=== PATIENT | female | born 1960 | race American Indian/Alaskan Native ===

== ENCOUNTER 2017-08-16 10:30 | Inpatient (IN) ==
[2017-08-11 15:54] LABS: Appearance,Urine HAZY; Bacteria,Urine MANY /hpf (0); Bilirubin,Urine NEG (NEG); Color,Urine YELLOW; Glucose,Urine (UA) NEGATIVE (NEG); Leukocyte Esterase,Urine 250 /uL (NEG); Mucus,Urine FEW /hpf (0); Nitrate,Urine NEG (NEG); Protein,Urine NEG (NEG); Urine Blood NEG mg/dL (<0.03); Urine RBC 2 /hpf (0-1); Urine Squamous Epithelial Cell 1 /hpf (0-4); Urine Transitional Epi Cells 1 /hpf (0-2); Urine WBC 146 /hpf (0-4); Urobilinogen,Urine NEG (NEG)
[2017-08-11 17:30] LABS: Basophils # (Auto) 0 K/mcL (0.0-0.3); Basophils % (Auto) 0.7 % (0.0-2.0); Eosinophils # (Auto) 0.2 K/mcL (0.0-0.7); Eosinophils % (Auto) 2.7 % (0.0-7.0); Lymphocytes # (Auto) 1.5 K/mcL (1.5-4.8); Lymphocytes % (Auto) 22.1 % (15.5-49.0); Mean Cell Volume 89.1 fL (80.0-100.0); Mean Corpuscular Hemoglobin 29.4 pg (26.0-34.0); Monocytes # (Auto) 0.8 K/mcL (0.1-0.9); Monocytes % (Auto) 12.5 % (1.0-12.0); Platelet Count 195 K/mcL (140-440); RBC 4.78 M/mcL (4.00-5.20); Red Cell Distribution Width 16.5 % (11.5-14.5)
[2017-08-11 17:36] LABS: Blood Urea Nitrogen 32 mg/dl (6-20)
[~2017-08-16 10:30] MED LIST: ACETAMINOPHEN 500 MG TABLET PO SCH; CELECOXIB 200 MG CAPSULE PO SCH; PREGABALIN 100 MG CAPSULE PO SCH; ceFAZolin 1 GM VIAL IV SCH; oxyCODONE 10 MG TAB.ER.12H PO SCH
[2017-08-16 11:41] LABS: Appearance,Urine CLEAR; Bacteria,Urine 0 /hpf (0); Bilirubin,Urine NEG (NEG); Color,Urine YELLOW; Glucose,Urine (UA) NEGATIVE (NEG); Leukocyte Esterase,Urine 25 /uL (NEG); Mucus,Urine FEW /hpf (0); Nitrate,Urine NEG (NEG); Protein,Urine 30 mg/dL (NEG); Specific Gravity,Urine 1.025 (1.000-1.035); Urine Blood NEG mg/dL (<0.03); Urine Hyaline Cast 4 /lpf (0-2); Urine RBC 1 /hpf (0-1); Urine Squamous Epithelial Cell < 1 /hpf (0-4); Urine Transitional Epi Cells < 1 /hpf (0-2); Urine WBC 5 /hpf (0-4)
[2017-08-16] MEDS ORDERED: PROPOFOL 200 MG/20 ML VIAL IV ONE (14:00)
[2017-08-16] MEDS ORDERED: MIDAZOLAM 5 MG/5 ML VIAL IV ONE (14:00)
[2017-08-16] MEDS ORDERED: GLYCOPYRROLATE 0.2 MG/ML VIAL IV ONE (14:00)
[2017-08-16] MEDS ORDERED: ONDANSETRON 4 MG/2 ML VIAL IV ONE (14:00)
[2017-08-16] MEDS ORDERED: TRANEXAMIC ACID 1,000 MG/10 ML VIAL IV ONE ×3 (14:00→15:35)
[2017-08-16] MEDS ORDERED: KETAMINE 100 MG/ML ML IV ONE (14:00)
[2017-08-16] MEDS ORDERED: LIDOCAINE HCL/PF 100 MG/5 ML SYRINGE IV ONE (14:00)
[2017-08-16] MEDS ORDERED: GENTAMICIN SULFATE 800 MG/20 ML VIAL IR ONE (14:19)
[2017-08-16] MEDS ORDERED: KETOROLAC 30 MG, ROPIVACAINE HCL/PF 49.5 ML, EPINEPHrine 0.5 MG, 0.9 % SODIUM CHLORIDE ... IJ SCH (14:30)
[2017-08-16] MEDS ORDERED: ONDANSETRON 4 MG/2 ML VIAL IV PRN ×2 (15:06→15:10)
[2017-08-16] MEDS ORDERED: IPRATROPIUM/ALBUTEROL 3 ML AMPUL.NEB NEB PRN (15:06)
[2017-08-16] MEDS ORDERED: METHOCARBAMOL 1,000 MG/10 ML VIAL IV PRN (15:06)
[2017-08-16] MEDS ORDERED: MEPERIDINE 25 MG/ML SYRINGE IV PRN (15:06)
--- NOTE | 2017-08-16 15:09 | Brief Operative Note ---
Date of procedure: 08/16/17 Pre-op diagnosis: right hip avn Post-op diagnosis: same Procedure: right giovanna Grafts/Implants: Yes Anesthesia: GETA Complications: none Complications Description: 08/16/17 15:09 none Surgeon: Poncho Hunter Waxer Floor: Jamal Barajas Estimated blood loss (cc): 120 Specimens Removed/Pathology: none sent Condition: stable Disposition: PACU
[2017-08-16] MEDS ORDERED: POLYETHYLENE GLYCOL 3350 17 GM PACKET PO PRN (15:10)
[2017-08-16] MEDS ORDERED: MAGNESIUM HYDROXIDE 30 ML ORAL.SUSP PO PRN (15:10)
[2017-08-16] MEDS ORDERED: FLEETS ADULT ENEMA PR PRN (15:10)
[2017-08-16] MEDS ORDERED: HYDROmorphone 2 MG/ML SYRINGE IV PRN (15:10)
[2017-08-16] MEDS ORDERED: TEMAZEPAM 15 MG CAPSULE PO PRN (15:10)
[2017-08-16] MEDS ORDERED: BISACODYL 10 MG SUPP.RECT PR PRN (15:10)
[2017-08-16] MEDS ORDERED: ACETAMINOPHEN 325 MG TABLET PO PRN (15:10)
[2017-08-16] MEDS ORDERED: BENZOCAINE/MENTHOL 1 LOZENGE PO PRN (15:10)
[2017-08-16] MEDS ORDERED: BECLOMETHASONE DIPROPIONATE 40MCG INHALER INH PRN (15:14)
[2017-08-16] MEDS ORDERED: LACTATED RINGERS 1,000 ML IV SCH (15:15)
[2017-08-16] MEDS ORDERED: fentaNYL 100 MCG/2 ML VIAL IV ONE (15:35)
[2017-08-16] MEDS ORDERED: DIAZEPAM 10 MG/2 ML SYRINGE IV ONE (15:39)
[2017-08-16] MEDS ORDERED: fentaNYL 100 MCG/2 ML VIAL IV SCH (15:45)
--- NOTE | 2017-08-16 16:16 | XRay Report ---
CLINICAL INFORMATION: Postsurgical follow-up TECHNIQUE: AP pelvis. AP and lateral right hip COMPARISON: None. FINDINGS: Status post right total hip arthroplasty. Acetabular and femoral head complements are in anatomic positions. Gamma nail configuration in the left hip. There are cancellous screws and an intramedullary nail in place. No pelvic fracture. No lytic lesion. IMPRESSION: Status post right total hip arthroplasty Interpreted and Authenticated by: Jose Weinberg 08/16/17
[2017-08-16] MEDS: 0.45 % SODIUM CHLORIDE 1,000 ML IV SCH (19:04)
[2017-08-16] MEDS: clonazePAM 0.5 MG TABLET PO SCH (20:22)
[2017-08-16] MEDS: PREGABALIN 150 MG CAPSULE PO SCH (20:22)
[2017-08-16] MEDS: ASPIRIN 325 MG ENTERIC COATED TABLET PO SCH (20:22)
[2017-08-16] MEDS: DOCUSATE SODIUM 100 MG CAPSULE PO SCH (20:22)
[2017-08-16] MEDS: busPIRone 5 MG TABLET PO SCH (20:22)
[2017-08-16] MEDS: 0.9 % SODIUM CHLORIDE 10 ML SYRINGE IV SCH (20:23)
[2017-08-16] MEDS: SENNOSIDES 1 TABLET PO SCH (20:23)
[2017-08-16] MEDS: oxyCODONE 10 MG TAB.ER.12H PO SCH (20:23)
[2017-08-16] MEDS: SIMVASTATIN 10 MG TABLET PO SCH (20:23)
[2017-08-16] MEDS: ceFAZolin 1 GM VIAL IV SCH (22:36)
[2017-08-16] MEDS: HYDROcodone/APAP 10/325MG TABLET PO PRN (23:08)
[2017-08-17] MEDS: 0.45 % SODIUM CHLORIDE 1,000 ML IV SCH ×3 (02:19→13:18)
[2017-08-17] MEDS: HYDROcodone/APAP 10/325MG TABLET PO PRN ×5 (04:00→22:59)
[2017-08-17] MEDS: ceFAZolin 1 GM VIAL IV SCH (07:06)
[2017-08-17] MEDS: 0.9 % SODIUM CHLORIDE 10 ML SYRINGE IV SCH ×3 (07:08→21:15)
[2017-08-17] MEDS: OMEPRAZOLE 20 MG CAPSULE PO SCH (07:08)
--- NOTE | 2017-08-17 07:39 | Orthopedic Progress Note ---
Subjective Patient information: Note initiated : 08/17/17 at 7:38 am Service Date, if different from initiated Date: [] Patient: Shiela Alas 57 y/o F admitted on 08/16/17 for Rt Total Hip Arthroplasty Posterior. Chief Complaint: [Pt is stable this morning on post operative day 1 without any significant concerns or complaints. Patients vital signs have remained stable. Patients dressing is dry and exhibits a grossly intact neurovascular and neuromotor exam. Patients 10 point ROS is otherwise negative. ] Objective Vital signs: Vital Signs Temp Pulse Pulse Resp BP Pulse Ox 08/17/17 07:35 90 08/17/17 07:20 53 L 12 90 08/17/17 06:00 95 08/17/17 03:13 97.7 F 53 L 16 132/76 95 08/17/17 03:12 95 08/17/17 02:00 94 08/16/17 23:52 97.6 F 54 L 16 122/78 94 08/16/17 23:51 94 08/16/17 22:43 94 08/16/17 20:27 97 08/16/17 19:41 96.9 F L 52 L 16 154/90 97 08/16/17 18:58 51 L 130/82 96 08/16/17 17:58 52 L 125/78 94 08/16/17 17:38 51 L 127/76 95 08/16/17 17:10 92 08/16/17 17:08 113/70 91 08/16/17 16:53 119/74 92 08/16/17 16:38 117/74 92 08/16/17 16:23 116/71 92 08/16/17 16:07 97.6 F 62 18 150/73 94 08/16/17 15:53 66 18 141/71 96 08/16/17 15:48 60 16 132/80 93 08/16/17 15:43 61 18 128/75 96 08/16/17 15:38 86 19 144/95 94 08/16/17 15:33 89 19 150/88 94 08/16/17 15:28 89 18 181/110 93 08/16/17 15:23 97.6 F 76 18 150/88 96 08/16/17 11:02 98 F 20 133/83 94 Intake and Output 08/16/17 08/17/17 08/17/17 21:59 05:59 13:59 Intake Total 2099 / 2099 1148 / 1148 Output Total 400 / 400 525 / 525 225 / 225 Balance 1700 / 1700 623 / 623 -225 / -225 Intake: IV 2099 998 / 998 Sodium Chloride 0.45% 1,000 ml 998 / 998 @ 100 mls/hr IV .Q10H [place] Rx#: [id number] Oral 150 / 150 Output: Void Amount 250 / 250 525 / 525 225 / 225 Estimated Blood Loss 150 / 150 Other: Weight 220 lb 8 oz Intake & Output: Intake & Output 08/16/17 08/17/17 08/17/17 21:59 05:59 13:59 Intake Total 2099 / 2099 1148 / 1148 Output Total 400 / 400 525 / 525 225 / 225 Balance 1700 / 1700 623 / 623 -225 / -225 Weight 220 lb 8 oz Intake: IV 2099 998 / 998 Sodium Chloride 0.45% 1,000 ml 998 / 998 @ 100 mls/hr IV .Q10H [place] Rx#: [id number] Oral 150 / 150 Output: Void Amount 250 / 250 525 / 525 225 / 225 Estimated Blood Loss 150 / 150 Incision: Yes healing Incision clean and dry: Yes Dressing: Yes clean, Yes dry Weight bearing status: full Neurological exam IM: Yes motor sensory intact, Yes neurovascular intact Extremities exam IM: Yes Foot pink and warm, Yes neurovascular intact - Labs CBC & BMP: 08/17/17 04:00 08/11/17 14:35 Labs: Orthopedic Labs 08/16/17 08/11/17 10:50 14:35 PT 13.2 21.8 H INR 1.0 1.8 H APTT 39 H 08/17/17 08/11/17 04:00 14:35 Hgb 14.0 Hct 34.7 L 42.5 Assessment and Plan (1) Hx of total hip arthroplasty The patient has been educated regarding dressing care, Physical Therapy recommendations, home exercises, restrictions, and follow up appointments. The patient has had all necessary DME prescribed. The patient has remained stable during their hospital course. The patient was discharge with a stable exam. Leave Dermabond patch intact until followup Status: Acute
--- NOTE | 2017-08-17 07:43 | Discharge Summary ---
Ortho Discharge - [facility] - Patient Instructions Diet: Regular Diet Activity: activity as tolerated, ambulate with assistive device, weight bearing as tolerated Total Hip Protocol: Follow activity instructions as provided by Physical Therapy. Dressing Care: May shower in 2 days Patient Education: Total Hip Replacement (DC) - Problem Maintenance (1) Hx of total hip arthroplasty Status: Acute - Follow Up Plan Follow Up Appointments: Poncho Hunter MD [Physician] - 08/31/17 10:40 am Disposition: Home, Self-Care Prognosis: Good Rehab Potential: Good I certify that the patient requires SNF services: No Overall status at discharge: patient is progressing back to baseline - Orders For Discharge Prescriptions: Docusate Sodium [Colace] 100 mg PO BID #60 cap HYDROcodone/APAP 10/325MG [[place] 10/325Mg] 1 - 2 tab PO Q4HP PRN #75 tab PRN Reason: Pain Level 3-6 oxyCODONE [Oxycontin] 10 mg PO Q12 #20 tab.er.12h
--- NOTE | 2017-08-17 09:23 | Operative Note ---
DATE OF OPERATION: 08/16/2017 PREOPERATIVE DIAGNOSIS: ___right hip djd POSTOPERATIVE DIAGNOSIS: ___right hip djd PROCEDURE: right tha__ SURGEON: Poncho Hunter M.D. DESCRIPTION OF PROCEDURE: The patient was brought to the operating room and put to sleep with general LMA anesthesia with a time out performed confirming the right hip to be the arthritic hip with avascular necrosis. After this timeout, preop antibiotics had been given, tranexamic acid given. We turned the patient in the left lateral position and a superior posterior approach performed. We went through the fascial layer, identified the superior posterior capsule which was released with the piriformis obturator internus, and this was tagged with a #1 Ethibond stitch. Once done, we then dislocated the hip and made our neck cut at 32 mm in length. Once done, we then reamed up the acetabulum to the size of 49, implanted a 50 cup with no screw holes with excellent fixation. Once in place, we then placed a 36 mm regular liner with highly cross-linked poly. The femur was then broached up to a size 4. Took x-rays with the size 4 stem which showed equal leg lengths. We then placed a cementless stem with a neutral neck length, 36 mm ceramic neck length without complications. This fit very nicely and was stable up to 80 degrees internal rotation. There was no complication. We repaired the posterior capsule with #1 Ethibond, closed the fascial layer with #1 Stratafix and then placed irrigation. The soft tissues were injected around the hip for pain control. Once this was done, I then closed the skin with 2-0 Vicryl and adhesive closure. The patient tolerated this well. There was no complication. RBH:benjy Job ID: [id number] Doc ID: [id number] Poncho AGRAWAL
[2017-08-17] MEDS: PREGABALIN 150 MG CAPSULE PO SCH ×2 (09:27→21:16)
[2017-08-17] MEDS: buPROPion 150 MG TAB.XL.24H PO SCH (09:28)
[2017-08-17] MEDS: LOSARTAN 50 MG TABLET PO SCH (09:28)
[2017-08-17] MEDS: ASPIRIN 325 MG ENTERIC COATED TABLET PO SCH ×2 (09:30→21:16)
[2017-08-17] MEDS: AMIODARONE HCL 200 MG TABLET PO SCH (09:30)
[2017-08-17] MEDS: BUMETANIDE 1 MG TABLET PO SCH (09:30)
[2017-08-17] MEDS: METOPROLOL SUCCINATE 50 MG TAB.XL.24H PO SCH (09:30)
[2017-08-17] MEDS: DOCUSATE SODIUM 100 MG CAPSULE PO SCH ×2 (09:30→21:16)
[2017-08-17] MEDS: CALCITRIOL 0.25 MCG CAPSULE PO SCH (09:30)
[2017-08-17] MEDS: clonazePAM 0.5 MG TABLET PO SCH ×3 (09:31→21:16)
[2017-08-17] MEDS: busPIRone 5 MG TABLET PO SCH ×2 (09:31→21:16)
[2017-08-17] MEDS: VENLAFAXINE 75 MG CAP.XL.24H PO SCH (09:31)
[2017-08-17] MEDS: oxyCODONE 10 MG TAB.ER.12H PO SCH ×2 (09:34→21:16)
[2017-08-17] MEDS: LEFLUNOMIDE 20 MG TABLET PO SCH (09:35)
[2017-08-17] MEDS: TIOTROPIUM BROMIDE 18 MCG INHALANT INH SCH (09:35)
[2017-08-17] MEDS ORDERED: FLU VACC QS2017-18 36MOS UP/PF 60 MCG/0.5 ML SYRINGE IM ONE (10:00)
[2017-08-17] MEDS: SENNOSIDES 1 TABLET PO SCH (21:15)
[2017-08-17] MEDS: SIMVASTATIN 10 MG TABLET PO SCH (21:15)
[2017-08-18] MEDS: HYDROcodone/APAP 10/325MG TABLET PO PRN ×4 (02:58→17:39)
[2017-08-18] MEDS: 0.9 % SODIUM CHLORIDE 10 ML SYRINGE IV SCH ×3 (04:31→20:52)
[2017-08-18] MEDS: OMEPRAZOLE 20 MG CAPSULE PO SCH (07:02)
[2017-08-18] MEDS: LOSARTAN 50 MG TABLET PO SCH (08:43)
[2017-08-18] MEDS: VENLAFAXINE 75 MG CAP.XL.24H PO SCH (08:43)
[2017-08-18] MEDS: PREGABALIN 150 MG CAPSULE PO SCH ×2 (08:43→20:51)
[2017-08-18] MEDS: BUMETANIDE 1 MG TABLET PO SCH (08:43)
[2017-08-18] MEDS: buPROPion 150 MG TAB.XL.24H PO SCH (08:43)
[2017-08-18] MEDS: AMIODARONE HCL 200 MG TABLET PO SCH (08:43)
[2017-08-18] MEDS: TIOTROPIUM BROMIDE 18 MCG INHALANT INH SCH (08:44)
[2017-08-18] MEDS: ASPIRIN 325 MG ENTERIC COATED TABLET PO SCH ×2 (08:44→20:51)
[2017-08-18] MEDS: DOCUSATE SODIUM 100 MG CAPSULE PO SCH ×2 (08:44→20:51)
[2017-08-18] MEDS: busPIRone 5 MG TABLET PO SCH ×2 (08:44→20:51)
[2017-08-18] MEDS: METOPROLOL SUCCINATE 50 MG TAB.XL.24H PO SCH (08:44)
[2017-08-18] MEDS: LEFLUNOMIDE 20 MG TABLET PO SCH (08:44)
[2017-08-18] MEDS: clonazePAM 0.5 MG TABLET PO SCH ×3 (08:45→20:51)
[2017-08-18] MEDS ORDERED: WARFARIN 2.5 MG TABLET PO SCH (14:00)
--- NOTE | 2017-08-18 18:39 | Orthopedic Progress Note ---
Subjective Patient information: Note initiated : 08/18/17 at 6:37 pm Service Date, if different from initiated Date: [] Patient: Shiela Alas 57 y/o F admitted on 08/16/17 for Rt Total Hip Arthroplasty Posterior. Chief Complaint: [pain and is improving] Objective Vital signs: Vital Signs Temp Pulse Pulse Resp BP BP Pulse Ox 08/18/17 18:00 93 08/18/17 16:00 99.0 F H 55 L 20 142/76 93 08/18/17 14:00 95 08/18/17 12:00 98.9 F 54 L 16 120/58 93 08/18/17 10:00 94 08/18/17 08:00 98.0 F 62 18 112/68 93 08/18/17 07:19 55 L 16 93 08/18/17 07:11 93 08/18/17 06:00 95 08/18/17 03:23 99.8 F H 59 L 14 138/76 92 08/18/17 00:00 98.0 F 58 L 14 148/78 96 08/17/17 21:00 95 08/17/17 19:48 99.2 F H 61 14 150/82 97 08/17/17 19:00 96 Intake and Output 08/18/17 08/18/17 08/18/17 05:59 13:59 21:59 Intake Total 500 / 500 480 / 480 240 / 240 Output Total 675 / 675 550 / 550 1000 / 1000 Balance -175 / -175 -70 / -70 -760 / -760 Intake: Oral 500 / 500 480 / 480 240 / 240 Output: Void Amount 675 / 675 550 / 550 1000 / 1000 Other: Meal Lunch Dinner Percent of Meal Consumed 50% 50% Feeding Ability Independent Independent # Voids 1 1 Intake & Output: Intake & Output 08/18/17 08/18/17 08/18/17 05:59 13:59 21:59 Intake Total 500 / 500 480 / 480 240 / 240 Output Total 675 / 675 550 / 550 1000 / 1000 Balance -175 / -175 -70 / -70 -760 / -760 Intake: Oral 500 / 500 480 / 480 240 / 240 Output: Void Amount 675 / 675 550 / 550 1000 / 1000 Other: Meal Lunch Dinner Percent of Meal Consumed 50% 50% Feeding Ability Independent Independent # Voids 1 1 Incision: Yes healing Incision clean and dry: Yes Dressing: Yes clean Weight bearing status: full Neurological exam IM: Yes oriented X3, Yes neurovascular intact Extremities exam IM: Yes Foot pink and warm (dc home in am), Yes neurovascular intact - Labs CBC & BMP: 08/17/17 04:00 08/11/17 14:35 Labs: Orthopedic Labs 08/16/17 08/11/17 10:50 14:35 PT 13.2 21.8 H INR 1.0 1.8 H APTT 39 H 08/17/17 08/11/17 04:00 14:35 Hgb 14.0 Hct 34.7 L 42.5
[2017-08-18] MEDS: SENNOSIDES 1 TABLET PO SCH (20:51)
[2017-08-18] MEDS: SIMVASTATIN 10 MG TABLET PO SCH (20:51)
[2017-08-19] MEDS: HYDROcodone/APAP 10/325MG TABLET PO PRN ×3 (03:06→12:34)
[2017-08-19] MEDS: 0.9 % SODIUM CHLORIDE 10 ML SYRINGE IV SCH (05:27)
[2017-08-19] MEDS: OMEPRAZOLE 20 MG CAPSULE PO SCH (07:12)
--- NOTE | 2017-08-19 08:04 | Orthopedic Progress Note ---
Subjective Patient information: Note initiated : 08/19/17 at 8:03 am Service Date, if different from initiated Date: [] Patient: Shiela Alas 57 y/o F admitted on 08/16/17 for Rt Total Hip Arthroplasty Posterior. Chief Complaint: [feeling better and less pain] Objective Vital signs: Vital Signs Temp Pulse Pulse Resp BP BP Pulse Ox 08/19/17 07:45 98.6 F 16 150/72 93 08/19/17 07:29 57 L 12 92 08/19/17 03:13 99.8 F H 58 L 16 148/68 94 08/19/17 02:00 94 08/19/17 00:00 97.6 F 53 L 16 130/62 94 08/18/17 20:00 98.9 F 54 L 16 126/60 95 08/18/17 18:00 93 08/18/17 16:00 99.0 F H 55 L 20 142/76 93 08/18/17 14:00 95 08/18/17 12:00 98.9 F 54 L 16 120/58 93 08/18/17 10:00 94 Intake and Output 08/18/17 08/19/17 08/19/17 21:59 05:59 13:59 Intake Total 240 / 240 500 / 500 Output Total 1675 / 1675 650 / 650 200 / 200 Balance -1435 / -1435 -150 / -150 -200 / -200 Intake: Oral 240 / 240 500 / 500 Output: Void Amount 1675 / 1675 650 / 650 200 / 200 Other: Meal Dinner Percent of Meal Consumed 50% Feeding Ability Independent Weight 219 lb Intake & Output: Intake & Output 08/18/17 08/19/17 08/19/17 21:59 05:59 13:59 Intake Total 240 / 240 500 / 500 Output Total 1675 / 1675 650 / 650 200 / 200 Balance -1435 / -1435 -150 / -150 -200 / -200 Weight 219 lb Intake: Oral 240 / 240 500 / 500 Output: Void Amount 1675 / 1675 650 / 650 200 / 200 Other: Meal Dinner Percent of Meal Consumed 50% Feeding Ability Independent Incision: Yes healing Incision clean and dry: Yes Dressing: Yes clean Weight bearing status: full Neurological exam IM: Yes oriented X3, Yes neurovascular intact Extremities exam IM: Yes Foot pink and warm (dc hoome), Yes neurovascular intact - Labs CBC & BMP: 08/17/17 04:00 08/11/17 14:35 Labs: Orthopedic Labs 08/19/17 08/16/17 08/11/17 04:30 10:50 14:35 PT 14.2 13.2 21.8 H INR 1.1 1.0 1.8 H APTT 39 H 08/17/17 08/11/17 04:00 14:35 Hgb 14.0 Hct 34.7 L 42.5
[2017-08-19] MEDS: AMIODARONE HCL 200 MG TABLET PO SCH (08:50)
[2017-08-19] MEDS: buPROPion 150 MG TAB.XL.24H PO SCH (08:50)
[2017-08-19] MEDS: DOCUSATE SODIUM 100 MG CAPSULE PO SCH (08:50)
[2017-08-19] MEDS: CALCITRIOL 0.25 MCG CAPSULE PO SCH (08:50)
[2017-08-19] MEDS: METOPROLOL SUCCINATE 50 MG TAB.XL.24H PO SCH (08:50)
[2017-08-19] MEDS: BUMETANIDE 1 MG TABLET PO SCH (08:50)
[2017-08-19] MEDS: PREGABALIN 150 MG CAPSULE PO SCH (08:51)
[2017-08-19] MEDS: clonazePAM 0.5 MG TABLET PO SCH (08:51)
[2017-08-19] MEDS: LOSARTAN 50 MG TABLET PO SCH (08:51)
[2017-08-19] MEDS: VENLAFAXINE 75 MG CAP.XL.24H PO SCH (08:51)
[2017-08-19] MEDS: busPIRone 5 MG TABLET PO SCH (08:51)
[2017-08-19] MEDS: LEFLUNOMIDE 20 MG TABLET PO SCH (08:52)
[2017-08-19] MEDS: TIOTROPIUM BROMIDE 18 MCG INHALANT INH SCH (08:52)
[2017-08-19] MEDS ORDERED: WARFARIN 2 MG TABLET PO SCH (14:00)
[2017-08-22] MEDS ORDERED: WARFARIN 1 MG TABLET PO SCH (14:00)
[2017-08-30] MEDS ORDERED: ERGOCALCIFEROL 1.25 MG PO SCH (09:00)
== END 2017-08-19 13:15 | disposition home or self-care (01) | DRG 470 ==
LOC: MEDSUR 10:30
PROVIDERS: ADMIT Orthopaedic Surgery; ATTEND Orthopaedic Surgery

== ENCOUNTER 2017-11-22 12:21 | Inpatient (IN) ==
[~2017-11-22 12:21] MED LIST changes: +0.9 % SODIUM CHLORIDE 250 ML IV SCH; -PREGABALIN 100 MG CAPSULE PO SCH; +PREGABALIN 150 MG CAPSULE PO SCH; -ceFAZolin 1 GM VIAL IV SCH
[2017-11-22] MEDS ORDERED: KETOROLAC 30 MG, ROPIVACAINE HCL/PF 49.5 ML, EPINEPHrine 0.5 MG, 0.9 % SODIUM CHLORIDE ... IJ ONE (13:00)
[2017-11-22] MEDS ORDERED: VANCOMYCIN 1,000 MG in 0.9 % SODIUM CHLORIDE 250 ML IV SCH (14:00)
[2017-11-22 14:36] LABS: Appearance,Urine HAZY; Bacteria,Urine 0 /hpf (0); Bilirubin,Urine NEG (NEG); Color,Urine YELLOW; Glucose,Urine (UA) NEGATIVE (NEG); Leukocyte Esterase,Urine 25 /uL (NEG); Mucus,Urine MOD /hpf (0); Protein,Urine 30 mg/dL (NEG); Specific Gravity,Urine 1.014 (1.000-1.035); Urine Blood NEG mg/dL (<0.03); Urine Hyaline Cast 6 /lpf (0-2); Urine RBC 1 /hpf (0-1); Urine Squamous Epithelial Cell 5 /hpf (0-4); Urine Transitional Epi Cells 1 /hpf (0-2); Urine WBC 4 /hpf (0-4); Urobilinogen,Urine NEG (NEG)
[2017-11-22] MEDS ORDERED: IPRATROPIUM/ALBUTEROL 3 ML AMPUL.NEB NEB ONE (16:20)
[2017-11-22] MEDS ORDERED: PROPOFOL 200 MG/20 ML VIAL IV ONE (16:50)
[2017-11-22] MEDS ORDERED: SUCCINYLCHOLINE 20 MG/ML ML IV ONE (16:50)
[2017-11-22] MEDS ORDERED: diphenhydrAMINE 50 MG/ML VIAL ONE (16:50)
[2017-11-22] MEDS ORDERED: ESMOLOL 100 MG/10 ML VIAL IV ONE (16:50)
[2017-11-22] MEDS ORDERED: ePHEDrine 50 MG/ML AMPUL IV ONE (16:50)
[2017-11-22] MEDS ORDERED: DEXAMETHASONE 10 MG/ML VIAL ONE (16:50)
[2017-11-22] MEDS ORDERED: EPINEPHrine 1 MG/10 ML (1:10,000) SYRINGE IV ONE (16:50)
[2017-11-22] MEDS ORDERED: MIDAZOLAM 5 MG/5 ML VIAL ONE (16:50)
[2017-11-22] MEDS ORDERED: LIDOCAINE HCL/PF 100 MG/5 ML SYRINGE IV ONE (16:50)
[2017-11-22] MEDS ORDERED: KETAMINE 10 MG/ML ML ONE (16:50)
[2017-11-22] MEDS ORDERED: GENTAMICIN SULFATE 800 MG/20 ML VIAL IR ONE (17:36)
[2017-11-22] MEDS ORDERED: fentaNYL 100 MCG/2 ML VIAL IV PRN (17:38)
[2017-11-22] MEDS ORDERED: METHOCARBAMOL 1,000 MG/10 ML VIAL IV PRN (17:38)
[2017-11-22] MEDS ORDERED: ONDANSETRON 4 MG/2 ML VIAL IV PRN ×2 (17:38→17:57)
[2017-11-22] MEDS ORDERED: MEPERIDINE 25 MG/ML SYRINGE IV PRN (17:38)
[2017-11-22] MEDS ORDERED: IPRATROPIUM/ALBUTEROL 3 ML AMPUL.NEB NEB PRN (17:38)
[2017-11-22] MEDS ORDERED: LACTATED RINGERS 1,000 ML IV SCH (17:45)
[2017-11-22] MEDS ORDERED: POLYETHYLENE GLYCOL 3350 17 GM PACKET PO PRN (17:57)
[2017-11-22] MEDS ORDERED: ACETAMINOPHEN 325 MG TABLET PO PRN (17:57)
[2017-11-22] MEDS ORDERED: MAGNESIUM HYDROXIDE 30 ML ORAL.SUSP PO PRN (17:57)
[2017-11-22] MEDS ORDERED: FLEETS ADULT ENEMA PR PRN (17:57)
[2017-11-22] MEDS ORDERED: KETOROLAC 30 MG/ML VIAL IV PRN (17:57)
[2017-11-22] MEDS ORDERED: TEMAZEPAM 15 MG CAPSULE PO PRN (17:57)
[2017-11-22] MEDS ORDERED: BENZOCAINE/MENTHOL 1 LOZENGE PO PRN (17:57)
[2017-11-22] MEDS ORDERED: TRANEXAMIC ACID 1,000 MG/10 ML VIAL IV ONE ×2 (17:57→19:07)
[2017-11-22] MEDS ORDERED: BISACODYL 10 MG SUPP.RECT PR PRN (17:57)
[2017-11-22] MEDS ORDERED: HYDROmorphone 2 MG/ML VIAL IV PRN (17:57)
--- NOTE | 2017-11-22 17:57 | Brief Operative Note ---
Date of procedure: 11/22/17 Pre-op diagnosis: Right hip revision femoral head Post-op diagnosis: same Procedure: right hip revision of the femoral head Grafts/Implants: Yes Anesthesia: CARRIEA Surgeon: Poncho Hunter Teacher Preschool: Jamal Barajas Estimated blood loss (cc): 0 Specimens Removed/Pathology: none sent Condition: stable Disposition: PACU
[2017-11-22] MEDS: 0.45 % SODIUM CHLORIDE 1,000 ML IV SCH (19:00)
--- NOTE | 2017-11-22 19:07 | XRay Report ---
CLINICAL INFORMATION: Postop total hip prostheses COMPARISON: None. FINDINGS: Right total hip revision shows near-anatomic alignment. Soft tissues swelling seen as expected. Old left hip fracture unchanged IMPRESSION: Negative Interpreted and Authenticated by: Jose Xiao 11/22/17
[2017-11-22] MEDS ORDERED: ROSUVASTATIN 10 MG TABLET PO SCH (21:00)
[2017-11-22] MEDS ORDERED: SENNOSIDES 1 TABLET PO SCH (21:00)
[2017-11-22] MEDS ORDERED: ATORVASTATIN 20 MG TABLET PO SCH (21:00)
[2017-11-22] MEDS: oxyCODONE/APAP 5/325MG TABLET PO PRN (21:23)
[2017-11-22] MEDS: ceFAZolin 1 GM VIAL IV SCH (21:28)
[2017-11-22] MEDS: DOCUSATE SODIUM 100 MG CAPSULE PO SCH (21:29)
[2017-11-22] MEDS: 0.9 % SODIUM CHLORIDE 10 ML SYRINGE IV SCH (22:36)
[2017-11-23] MEDS: oxyCODONE/APAP 5/325MG TABLET PO PRN ×4 (02:03→13:26)
[2017-11-23] MEDS: 0.45 % SODIUM CHLORIDE 1,000 ML IV SCH ×2 (03:27→14:43)
[2017-11-23] MEDS: 0.9 % SODIUM CHLORIDE 10 ML SYRINGE IV SCH ×2 (05:05→14:43)
[2017-11-23] MEDS: ceFAZolin 1 GM VIAL IV SCH (05:06)
--- NOTE | 2017-11-23 07:19 | Operative Note ---
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 PROCEDURE: Revision of the femoral head and release of the capsule. IMPLANTS: Revised from a neutral 36 mm head to a +7.5 mm head with removal of the anterior capsule and repair of the posterior capsule. SURGEON: Poncho Hunter MD NUCLEAR EQUIPMENT RESEARCH ENGINEER: Jamal Barajas PA-C BLOOD LOSS: About 50 mL COMPLICATIONS: None. DESCRIPTION OF PROCEDURE: The patient was brought to the operating room and put to sleep with general LMA anesthesia. Once this was done, we then performed an incision through her prior scar. Knowing vancomycin had been given, tranexamic acid given, we exposed the superior posterior approach. The [place] retractor was then placed. I then dislocated the hip at about 30 to 40 degrees of internal rotation. At this point, I released much of the tissue in the anterior capsule where it had been impinging. The cup and stem were well positioned. I then trialed the size 5, which gained up to about 60 degrees, went with a 7.5 that went up to 70 to 80 degrees with no subluxation, even with abduction to neutral. We irrigated thoroughly and then removed any further tissue anteriorly, repaired the posterior capsule with #2 Ethibond stitch. I irrigated thoroughly. Once this was done and the patient stable, we closed the fascial layer after thorough irrigation with #1 Stratafix, closed the skin with Stratafix and 2-0 Vicryl and rah. The patient tolerated this well without complication. RBH:myles Job ID: [id number] Doc ID: [id number] Poncho Hunter MD
--- NOTE | 2017-11-23 07:50 | Orthopedic Progress Note ---
Subjective Patient information: Note initiated : 11/23/17 at 7:48 am Service Date, if different from initiated Date: [] Patient: Shiela Alas 57 y/o F admitted on 11/22/17 for Right Total Hip Revision - Femoral Head Lengthenin. Chief Complaint: [Pt is stable this morning on post operative day 1 without any significant concerns or complaints. Patients vital signs have remained stable. Patients dressing is dry and is grossly instact from a neurovascular and motor standpoint. Patients 10 point ROS is otherwise negative. ] Objective Vital signs: Vital Signs Temp Pulse Resp BP Pulse Ox 11/23/17 07:24 96.4 F L 65 12 119/75 95 11/23/17 06:09 93 11/23/17 04:44 94 11/23/17 04:00 97.6 F 69 12 144/78 94 11/23/17 01:00 91 11/23/17 00:00 98.0 F 68 12 120/69 95 11/22/17 23:00 95 11/22/17 22:20 92 11/22/17 21:36 72 146/86 90 11/22/17 21:35 97.2 F 68 12 128/64 95 11/22/17 20:06 68 151/78 88 L 11/22/17 19:57 88 L 11/22/17 19:35 65 137/76 96 11/22/17 19:20 69 119/69 93 11/22/17 19:05 69 114/70 95 11/22/17 18:51 67 121/69 89 L 11/22/17 18:36 96.5 F L 69 12 124/66 93 11/22/17 18:22 97.6 F 67 16 133/70 94 11/22/17 18:07 97.3 F 68 17 124/60 96 11/22/17 18:02 70 18 136/72 84 L 11/22/17 17:57 80 16 141/69 94 11/22/17 17:52 98.1 F 79 18 124/69 94 Intake and Output 11/22/17 11/23/17 11/23/17 21:59 05:59 13:59 Intake Total 100 / 100 350 / 350 1000 / 1000 Output Total 200 / 200 425 / 425 Balance -100 / -100 -75 / -75 1000 / 1000 Intake: IV 1000 / 1000 Sodium Chloride 0.45% 1,000 ml 1000 / 1000 @ 100 mls/hr IV .Q10H [place] Rx#: [id number] Oral 350 / 350 IV - Manual Only 100 / 100 Output: Void Amount 425 / 425 Estimated Blood Loss 200 / 200 Other: Weight 210 lb Intake & Output: Intake & Output 11/22/17 11/23/17 11/23/17 21:59 05:59 13:59 Intake Total 100 / 100 350 / 350 1000 / 1000 Output Total 200 / 200 425 / 425 Balance -100 / -100 -75 / -75 1000 / 1000 Weight 210 lb Intake: IV 1000 / 1000 Sodium Chloride 0.45% 1,000 ml 1000 / 1000 @ 100 mls/hr IV .Q10H [place] Rx#: [id number] Oral 350 / 350 IV - Manual Only 100 / 100 Output: Void Amount 425 / 425 Estimated Blood Loss 200 / 200 Incision: Yes healing Incision clean and dry: Yes Dressing: Yes clean Weight bearing status: full Neurological exam IM: Yes motor sensory intact, Yes neurovascular intact Extremities exam IM: Yes Foot pink and warm, Yes neurovascular intact - Labs CBC & BMP: 11/23/17 04:18 Labs: Orthopedic Labs 11/22/17 16:24 PT 15.3 H INR 1.2 H 11/23/17 04:18 Hct 34.8 L Assessment and Plan (1) Hx of total hip arthroplasty The patient has been educated regarding dressing care, Physical Therapy recommendations, home exercises, restrictions, and follow up appointments. The patient has had all necessary DME prescribed. The patient has remained stable during their hospital course. The patient was discharge with a stable exam. Status: Acute
--- NOTE | 2017-11-23 07:52 | Discharge Summary ---
Ortho Discharge - [facility] - Patient Instructions Diet: Regular Diet Activity: activity as tolerated, weight bearing as tolerated Total Hip Protocol: Follow activity instructions as provided by Physical Therapy. Dressing Care: May shower in 3 days, Aquacel Ag - leave on for 5 days - Problem Maintenance (1) Hx of total hip arthroplasty Status: Acute - Follow Up Plan Follow Up Appointments: Poncho Hunter MD [Physician] - 12/07/17 3:50 pm Disposition: Xfer SNF Prognosis: Good Rehab Potential: Good I certify that the patient requires SNF services: Yes Overall status at discharge: patient is progressing back to baseline - Orders For Discharge Prescriptions: Docusate Sodium [Colace] 100 mg PO BID #60 cap oxyCODONE/APAP [Percocet 5-325 mg] 1 - 2 tab PO Q4HP PRN #75 tab PRN Reason: Pain Level 3-6
[2017-11-23] MEDS ORDERED: buPROPion 150 MG TAB.XL.24H PO SCH (09:00)
[2017-11-23] MEDS: DOCUSATE SODIUM 100 MG CAPSULE PO SCH (09:00)
[2017-11-23] MEDS ORDERED: BUMETANIDE 1 MG TABLET PO SCH (09:00)
== END 2017-11-23 16:20 | DRG 468 ==
LOC: MEDSUR 12:21
PROVIDERS: ADMIT Orthopaedic Surgery; ATTEND Orthopaedic Surgery

== ENCOUNTER 2018-07-22 16:44 | Inpatient (IN) ==
[2018-07-22] MEDS: LACTATED RINGERS 1,000 ML IV SCH ×3 (17:08→22:25)
--- NOTE | 2018-07-22 17:29 | XRay Report ---
CLINICAL INFORMATION: SOB COMPARISON: 10/30/2017 FINDINGS: Borderline cardiomegaly is unchanged. Mediastinum and pulmonary vessels are normal. Lungs are elevated suggesting chronic bronchitis. Scattered calcified granulomas seen in both perihilar regions - as before. No infiltrates only minor atelectasis in left base IMPRESSION: Borderline cardiomegaly and mild chronic bronchitis changes - stable Interpreted and Authenticated by: Jose Xiao 07/22/18
[2018-07-22 18:08] LABS: ALT/SGPT 13 U/l (0-40); Albumin/Globulin Ratio 1.2 (1.0-2.3); Alkaline Phosphatase 87 U/L (39-117); Blood Urea Nitrogen 27 mg/dl (6-20)
[2018-07-22 18:09] LABS: Basophils # (Auto) 0.3 K/mcL (0.0-0.3); Basophils % (Auto) 1.1 % (0.0-2.0); Eosinophils # (Auto) 0 K/mcL (0.0-0.7); Eosinophils % (Auto) 0 % (0.0-7.0); Granulocytes % (Auto) 91.9 % (38.0-78.0); Lymphocytes # (Auto) 0.6 K/mcL (1.5-4.8); Lymphocytes % (Auto) 2.4 % (15.5-49.0); Mean Cell Volume 86.5 fL (80.0-100.0); Mean Corpuscular HGB Conc 33.4 g/dL (31.0-36.0); Mean Corpuscular Hemoglobin 28.9 pg (26.0-34.0); Monocytes # (Auto) 1.1 K/mcL (0.1-0.9); Monocytes % (Auto) 4.6 % (1.0-12.0); Platelet Count 207 K/mcL (140-440); RBC 4.88 M/mcL (4.00-5.20); Red Cell Distribution Width 15.4 % (11.5-14.5)
[2018-07-22] MEDS ORDERED: LEVOFLOXACIN 750 MG/150 ML BAG IV ONE (18:23)
[2018-07-22] MEDS ORDERED: cefTRIAXone 1 GM VIAL IV ONE (18:26)
[2018-07-22 18:53] LABS: Appearance,Urine CLEAR; Bacteria,Urine FEW /hpf (0); Bilirubin,Urine NEG (NEG); Color,Urine STRAW; Glucose,Urine (UA) NEGATIVE (NEG); Leukocyte Esterase,Urine 25 /uL (NEG); Mucus,Urine FEW /hpf (0); Protein,Urine NEG (NEG); Urine Blood 0.03 mg/dL (<0.03); Urine Hyaline Cast 1 /lpf (0-2); Urine RBC 1 /hpf (0-1); Urine Squamous Epithelial Cell 1 /hpf (0-4); Urine Transitional Epi Cells < 1 /hpf (0-2); Urine WBC 5 /hpf (0-4); Urobilinogen,Urine NEG (NEG)
--- NOTE | 2018-07-22 19:03 | Emergency Department Note ---
General Adult HPI - General Chief complaint: Cold/Flu Symptoms Stated complaint: Cold symptoms Time Seen by Provider: 07/22/18 16:49 Source: patient, family Mode of arrival: wheelchair Limitations: no limitations - History of Present Illness HPI Narrative: 58-year-old female in ED with caregiver present. Caregiver states she saw patient on Wednesday and patient did not have lower left limb inflammation. Caregiver also states patient has altered mental status compared to her normal, fever, increased shortness of breath. Patient states she hasn't been feeling well for 2 days. She is normally on nasal cannula 2.5 L at home. Patient has are, CHF, diabetes type 2 with insulin, chronic renal disease (single kidney), and multiple other diagnoses. Onset (ago): day(s) (2) Associated symptoms: Reports: cough, fever/chills, headaches, loss of appetite, malaise, shortness of breath, weakness Treatments Prior to Arrival: none - Related Data Home Medications Medication Instructions Recorded Confirmed Bumetanide 2 mg PO QDAY 03/07/15 07/22/18 Pregabalin [Lyrica] 300 mg PO BID 03/07/15 07/22/18 Rosuvastatin [Crestor] 10 mg PO HS 03/07/15 07/22/18 Venlafaxine HCl [Venlafaxine HCl 225 mg PO QDAY 03/07/15 07/22/18 ER] buPROPion [Wellbutrin Xl] 300 mg PO DAILY 03/07/15 07/22/18 Losartan Potassium [Cozaar] 100 mg PO DAILY 08/11/17 07/22/18 busPIRone [Buspar] 10 mg PO BID 08/11/17 07/22/18 clonazePAM [KlonoPIN] 1 mg PO TID 08/11/17 07/22/18 Home O2 10/30/17 05/24/18 acetaminophen-codeine 1 tab PO BID 06/22/18 07/22/18 Amiodarone HCl [Cordarone] 200 mg PO ONCE 07/22/18 07/22/18 Beclomethasone Dipropionate [Qvar 1 puff INH BID 07/22/18 07/22/18 40] Diclofenac Gel 2 gm TOPICAL Q12HP PRN 07/22/18 07/22/18 Docusate Sodium [Dulcolax Stool 100 mg PO BID 07/22/18 07/22/18 Softener] HYDROcodone/APAP 10/325MG [[place] 1 - 2 tab PO Q4H PRN 07/22/18 07/22/18 10-325Mg] HYDROcodone/APAP 5/325MG [[place] 1 tab PO Q4HP PRN 07/22/18 07/22/18 5-325Mg] Metoprolol Succinate [Toprol Xl] 50 mg PO ONCE 07/22/18 07/22/18 Ondansetron HCl [Zofran ODT] 4 mg SL Q4-6HP PRN 07/22/18 07/22/18 Tiotropium [place] [Spiriva] 18 mcg INH DAILY 07/22/18 07/22/18 Warfarin [Coumadin] 1.5 mg PO DAILY 07/22/18 07/22/18 oxyCODONE HCL/ACETAMINOPHEN 1 each PO Q4HP PRN 07/22/18 07/22/18 [Percocet 7.5-325 mg Tablet] Allergies Allergy/AdvReac Type Severity Reaction Status Date / Time Sulfa (Sulfonamide Allergy Intermediate Itching Verified 07/22/18 16:44 Antibiotics) quetiapine Allergy Unknown Unknown Verified 07/22/18 16:44 Iodinated Contrast- Oral and AdvReac Severe Itching Verified 07/22/18 16:44 IV Dye [Iodinated Contrast Media - IV Dye] iodine AdvReac Severe Itching Verified 07/22/18 16:44 Methadone AdvReac Severe Confusion Verified 07/22/18 16:44 Adhesive Tape Allergy Unknown Unknown Uncoded 06/22/18 10:52 Bee Stings Allergy Unknown Unknown Uncoded 06/22/18 10:52 Sun Allergy Unknown Unknown Uncoded 06/22/18 10:52 Review of Systems All systems ED: reviewed and negative except as stated. Past Medical History - Past Medical History PMFSH Narrative: All Active Problems (Last Reviewed 05/24/18 @ 13:28 by Kasandra Reardon CMA) Encounter for long-term (current) use of high-risk medication (Acute) Rheumatoid arthritis (Acute) Osteoarthritis (Acute) Polyarthralgia (Acute) Epigastric abdominal pain (Chronic) Macular degeneration (Chronic) External otitis of left ear (Chronic) Pyoderma (Chronic) Anxiety and depression (Chronic) History of Coumadin therapy (Chronic) CVA (cerebral vascular accident) (Chronic) Chronic back pain (Chronic) Arthralgia (Chronic) Osteoporosis (Chronic) Elevated C-reactive protein (CRP) (Chronic) Elevated erythrocyte sedimentation rate (Chronic) CHICHO positive (Chronic) Stenosis, cervical spine (Chronic) Idiopathic osteoarthritis (Chronic) Chronic diastolic heart failure (Chronic) Sicca syndrome (Chronic) Atrial fibrillation (Chronic) Onychomycosis of toenail (Chronic) Mass of skin of right foot (Chronic) Callus of foot (Chronic) Skin fissure (Chronic) Calcaneal spur of both feet (Chronic) Arthritis of both feet (Chronic) Hammertoe (Chronic) Hallux valgus with bunions (Chronic) Ankle joint contracture (Chronic) Plantar fasciitis, right (Chronic) Other dislocation of right foot, subsequent encounter (Chronic) Metatarsalgia, right foot (Chronic) Skin ulcer (Chronic) Peripheral vascular disease (Chronic) Neuropathic pain of ankle (Chronic) Diabetic ulcer of left foot (Chronic) Diabetic ulcer of right foot (Chronic) Cellulitis and abscess of foot (Chronic) Fatigue (Chronic) URI (upper respiratory infection) (Chronic) Cough (Chronic) Diarrhea (Chronic) Ankle sprain and strain (Chronic) Urinary tract infection (Chronic) Urinary tract infection (Chronic) Hx of total hip arthroplasty (Chronic) Fall (Chronic) Weakness (Chronic) Contusion (Chronic) Hip dislocation, right (Chronic) Dislocated hip (Chronic) Hypoxia (Chronic) Bradycardia (Chronic) Cigarette smoker (Chronic) Hypokalemia (Chronic) Posterior dislocation of right hip, initial encounter (Chronic) Lower extremity cellulitis (Chronic) Hx of total hip arthroplasty (Chronic) Finger fracture (Chronic) Post-operative pain (Chronic) Secondary renal hyperparathyroidism (Chronic) Hypertensive renal disease (Chronic) CKD (chronic kidney disease), stage III (Chronic) Dressing change or removal, surgical wound (Chronic) History of trigger finger (Chronic) History of tonsillectomy (Chronic) Status post peripherally inserted central catheter (PICC) central line placement (Chronic) History of nephrectomy (Chronic) History of left knee replacement (Chronic) History of kidney surgery (Chronic) History of hysterectomy (Chronic) History of eye surgery (Chronic) History of colonoscopy (Chronic) History of chemotherapy (Chronic) History of adenoidectomy (Chronic) Vitamin D deficiency (Chronic) Ventricular hypertrophy (Chronic) Tremor (Chronic) Sleep apnea (Chronic) Sepsis (Chronic) Respiratory failure, acute (Chronic) Renal cell carcinoma (Chronic) Peripheral neuropathy (Acute) Onychomycosis (Chronic) Malignant lymphoma (Chronic) IBS (irritable bowel syndrome) (Chronic) Hyperlipidemia (Chronic) GERD (gastroesophageal reflux disease) (Chronic) Gait abnormality (Chronic) Edema (Chronic) Diabetes mellitus type 2 with complications (Chronic) Situational depression (Chronic) CHF (congestive heart failure) (Chronic) Back pain (Chronic) Atrial enlargement, left (Chronic) Asthma (Chronic) Past Surgical History (Last Reviewed 05/24/18 @ 13:28 by Kasandra Reardon CMA) History of trigger finger (Chronic) History of tonsillectomy (Chronic) Status post peripherally inserted central catheter (PICC) central line placement (Chronic) History of nephrectomy (Chronic) History of left knee replacement (Chronic) History of kidney surgery (Chronic) History of hysterectomy (Chronic) History of eye surgery (Chronic) History of colonoscopy (Chronic) History of adenoidectomy (Chronic) Family History (Last Reviewed 05/24/18 @ 13:28 by Kasandra Reardon CMA) Unknown Family history of malignant neoplasm Cardiac disease Essential hypertension Medical history: Reports: asthma, cancer (Renal cell carcinoma. Malignant lymphoma.), CHF, DM (Type II), GERD, hyperlipidemia, obesity, peripheral artery disease, renal disease, other (Cellulitis/abscess of the foot. Fatigue. Recurrent upper respiratory infections. Frequent urinary tract infections. Hyperparathyroidism. Hypertensive renal disease, CKD stage III. Vitamin D deficiency. Ventricular hypertrophy. Tremors. Obst sleep apnea. Sepsis. Respiratory failure. Peripheral neuropathy. IBS. Gait abnormality. Chronic edema. Back pain. Atrial enlargement. RECURRENT RIGHT HIP DISLOCATIONS.) Psychiatric history: Reports: depression [employer] history: Reports: non-contributory Surgical history ED: Reports: hip replacement, knee replacement, other ( Amputation right great toe) - Social History smoking status: Current every day smoker Alcohol use: Reports: Occasionally (has quit and drank fairly heavily prior. Denies 11-19-17) Drug use: Reports: marijuana Physical Exam Limitations: no limitations General appearance: alert, malaise Head: atraumatic, normocephalic, normal inspection Eye: Present: normal appearance, PERRL. Absent: conjunctival injection ENT: normal exam, mucous membranes dry, normal external ear exam External ear: Present: normal external inspection Mouth: Present: tongue normal Throat: Present: tonsillar erythema Neck: Present: normal inspection. Absent: tenderness, lymphadenopathy Chest: Present: normal inspection, symmetric chest wall rise Respiratory: Present: normal lung sounds bilaterally, other (bilateral diminished) Cardiovascular: Present: regular rate. Absent: systolic murmur, diastolic murmur Abdominal: Present: soft, hypoactive bowel sounds. Absent: distention, tenderness, guarding, rebound, rigidity Extremities: Present: pedal edema (1+ left side) Lower leg: Present: tenderness, swelling, erythema (lower left extremity) Back: Present: normal inspection. Absent: tenderness, CVA tenderness (R), CVA tenderness (L) Neurological: Present: alert, other (poor historian) Psychiatric: Present: normal affect, normal mood, anxious Skin: Present: warm, dry, intact, normal color. Absent: cyanosis, diaphoresis Course Vital Signs Temperature 97.0 F 07/22/18 16:44 Pulse Rate 68 07/22/18 16:44 Respiratory Rate 20 07/22/18 16:44 Blood Pressure 111/77 07/22/18 16:44 Pulse Oximetry (%) 97 07/22/18 16:44 Temperature 101.1 F H 07/22/18 21:14 Pulse Rate 66 07/22/18 21:41 Respiratory Rate 12 07/22/18 21:01 Blood Pressure 136/79 07/22/18 21:31 Pulse Oximetry (%) 97 07/22/18 21:41 Medical Decision Making - [facility] Narrative Medical decision making narrative: Sepsis protocol started due to patient in triage on oxygen with SPO2 of 88% after patient rests SPO2 does increase to 100%. Patient also with increased respirations and shortness of breath. Lactated Ringer's 500 mL per hour provided patient placed on nasal cannula oxygen 2 L with 100% SPO2. X-ray showed chronic bronchitis with borderline cardiomegaly. White blood cell 23.4, sodium 131, BUN 27, creatinine 1.4 Administered 1G Rocephin, Albuterol nebulizer treatment, 650mg Tylenol PO Consulted with who accepted patient for cellulitis. - Lab Data Lab results reviewed: Yes I reviewed the patient's lab results. Result diagrams: 07/22/18 17:18 07/22/18 17:17 Lab Results 07/22/18 07/22/18 07/22/18 Range/Units 17:15 17:17 17:17 WBC (4.5-11.0) K/mcL RBC (4.00-5.20) M/mcL Hgb (12.0-15.0) g/dL Hct (36.0-48.0) % MCV (80.0-100.0) fL MCH (26.0-34.0) pg MCHC (31.0-36.0) g/dL RDW (11.5-14.5) % Plt Count (140-440) K/mcL MPV (7.4-10.4) fL Gran % (38.0-78.0) % Lymph % (Auto) (15.5-49.0) % [place] % (Auto) (1.0-12.0) % Eos % (Auto) (0.0-7.0) % Baso % (Auto) (0.0-2.0) % Gran # (1.8-8.0) K/mcL Lymph # (Auto) (1.5-4.8) K/mcL [place] # (Auto) (0.1-0.9) K/mcL Eos # (Auto) (0.0-0.7) K/mcL Baso # (Auto) (0.0-0.3) K/mcL Differential Comment VBG Lactic Acid 1.2 (0.5-2.0) mmol/L Sodium 131 L (133-145) mmol/L Potassium 4.1 (3.3-5.1) mmol/L Chloride 89 L (96-108) mmol/L Carbon Dioxide 27 (22-30) mmol/L Anion Gap 15.0 (8-16) BUN 27 H (6-20) mg/dl Creatinine 1.4 H (0.6-1.1) mg/dl GFR Calculation 42 Glucose 86 (70-105) mg/dL Calcium 9.1 (8.6-10.4) mg/dl Total Bilirubin 0.6 (0.0-1.0) mg/dL AST 16 (0-37) U/l ALT 13 (0-40) U/l Alkaline Phosphatase 87 (39-117) U/L Total Protein 7.3 (5.9-8.4) gm/dL Albumin 4.0 (3.2-5.2) gm/dL Globulin 3.3 (2.2-3.7) gm/dL Albumin/Globulin Ratio 1.2 (1.0-2.3) Procalcitonin 4.16 (<0.10) ng/mL Urine Color Urine Appearance Urine pH (5.0-9.0) Ur Specific [place] (1.000-1.035) Urine Protein (NEG) mg/dL Urine Glucose (UA) (NEG) mg/dL Urine Ketones (NEG) mg/dL Urine Occult Blood (<0.03) mg/dL Urine Nitrate (NEG) Urine Bilirubin (NEG) mg/dL Urine Urobilinogen (NEG) mg/dL Ur Leukocyte Esterase (NEG) /uL Urine RBC (0-1) /hpf Urine WBC (0-4) /hpf Ur Squamous Epith Cells (0-4) /hpf Ur Transition Epith Cell (0-2) /hpf Urine Bacteria (0) /hpf Hyaline Casts (0-2) /lpf Urine Mucus (0) /hpf Ur Culture Indicated? 07/22/18 07/22/18 Range/Units 17:18 18:21 WBC 23.4 H (4.5-11.0) K/mcL RBC 4.88 (4.00-5.20) M/mcL Hgb 14.1 (12.0-15.0) g/dL Hct 42.2 (36.0-48.0) % MCV 86.5 (80.0-100.0) fL MCH 28.9 (26.0-34.0) pg MCHC 33.4 (31.0-36.0) g/dL RDW 15.4 H (11.5-14.5) % Plt Count 207 (140-440) K/mcL MPV 10.8 H (7.4-10.4) fL Gran % 91.9 H (38.0-78.0) % Lymph % (Auto) 2.4 L (15.5-49.0) % [place] % (Auto) 4.6 (1.0-12.0) % Eos % (Auto) 0 (0.0-7.0) % Baso % (Auto) 1.1 (0.0-2.0) % Gran # 21.5 H (1.8-8.0) K/mcL Lymph # (Auto) 0.6 L (1.5-4.8) K/mcL [place] # (Auto) 1.1 H (0.1-0.9) K/mcL Eos # (Auto) 0 (0.0-0.7) K/mcL Baso # (Auto) 0.3 (0.0-0.3) K/mcL Differential Comment VBG Lactic Acid (0.5-2.0) mmol/L Sodium (133-145) mmol/L Potassium (3.3-5.1) mmol/L Chloride (96-108) mmol/L Carbon Dioxide (22-30) mmol/L Anion Gap (8-16) BUN (6-20) mg/dl Creatinine (0.6-1.1) mg/dl GFR Calculation Glucose (70-105) mg/dL Calcium (8.6-10.4) mg/dl Total Bilirubin (0.0-1.0) mg/dL AST (0-37) U/l ALT (0-40) U/l Alkaline Phosphatase (39-117) U/L Total Protein (5.9-8.4) gm/dL Albumin (3.2-5.2) gm/dL Globulin (2.2-3.7) gm/dL Albumin/Globulin Ratio (1.0-2.3) Procalcitonin (<0.10) ng/mL Urine Color Straw Urine Appearance Clear Urine pH 6.0 (5.0-9.0) Ur Specific [place] 1.010 (1.000-1.035) Urine Protein Neg (NEG) mg/dL Urine Glucose (UA) Negative (NEG) mg/dL Urine Ketones Neg (NEG) mg/dL Urine Occult Blood 0.03 A (<0.03) mg/dL Urine Nitrate Neg (NEG) Urine Bilirubin Neg (NEG) mg/dL Urine Urobilinogen Neg (NEG) mg/dL Ur Leukocyte Esterase 25 A (NEG) /uL Urine RBC 1 (0-1) /hpf Urine WBC 5 H (0-4) /hpf Ur Squamous Epith Cells 1 (0-4) /hpf Ur Transition Epith Cell < 1 (0-2) /hpf Urine Bacteria Few A (0) /hpf Hyaline Casts 1 (0-2) /lpf Urine Mucus Few (0) /hpf Ur Culture Indicated? Yes - Radiology Data Radiology results reviewed: Yes I reviewed the patient's radiology results. Borderline cardiomegaly and mild chronic bronchitis changes - stable Disposition Pt seen by [facility] HELPER/PA only: No (Assistant Dean) Clinical Impression: Cellulitis of left lower extremity without foot Disposition: Xfer As Inpt ([facility]) Condition: Fair Time of Disposition: 22:05
[2018-07-22] MEDS ORDERED: ALBUTEROL SULFATE 2.5 MG/3 ML NEBULIZER NEB ONE (19:09)
[2018-07-22] MEDS ORDERED: ACETAMINOPHEN 325 MG TABLET PO ONE (20:27)
--- NOTE | 2018-07-22 21:12 | Internal Med History&Physical ---
Medical - H&P: HPI Patient information: Note initiated : 07/22/18 at 9:09 pm Service Date, if different from initiated Date: [] Patient: Shiela Alas a 58 y/o F admitted on for Cold symptoms. Chief Complaint: [] History of present illness: Ms. Alas is a 58 year old F with history of diabetes who lives by herself. She is on 2 L of oxygen when she sleeps presents to the emergency room today brought in by her caregiver for evaluation of left lower extremity redness. The patient a poor history provider however notes that she started having pain redness and swelling in the left lower extremity since yesterday. She has not been doing well since then. This is associated with fever chills and Reiger's. She also had some nausea and vomiting over the night. Her caregiver who sees her twice a week does not remember having redness or swelling in the lower extremities during the last visit. This was concerning and therefore she was brought to the hospital. The patient has chronic headaches, has some cough and shortness of breath denies any chest pain denies any abdominal pain had some nausea and vomiting as mentioned above, she denies any diarrhea or any urinary complaints. She denies any new joint pains any abnormal skin rashes except for redness on the left lower extremity, she admits to having some anxiety and depression. On presentation in the emergency room she was initially afebrile however later developed a temperature of 102.5, heart rate 72 blood pressure 1 1 6 x 94 saturating around 88-90% on room air with 2 L of oxygen was 96%. Chest x-ray done shows borderline cardiomegaly mild chronic bronchitis EKG was sinus rhythm. Labs show leukocytosis WBC 23,400 hemoglobin 14 platelets 207 lactic acid was 1.2. Sodium 131 potassium 4.1 chloride a 89, bicarbonate 27 creatinine 1.4 baseline around 0.9 glucose 86. Patient has a solitary kidney. Pro calcitonin elevated at 4.16 UA has some mild leukocyte esterase. She was given some fluids blood cultures were sent and started on Rocephin and levofloxacin admitted to the hospital for further management All systems: reviewed and no additional remarkable complaints except as stated ( as per HPI rest neg) Medical - H&P: PMH Medical history: Medical History (Last Reviewed 05/24/18 @ 13:28 by Kasandra Reardon CMA) Encounter for long-term (current) use of high-risk medication (Acute) Rheumatoid arthritis (Acute) Polyarthralgia (Acute) Epigastric abdominal pain (Chronic) Macular degeneration (Chronic) External otitis of left ear (Chronic) Pyoderma (Chronic) Anxiety and depression (Chronic) History of Coumadin therapy (Chronic) CVA (cerebral vascular accident) (Chronic) Chronic back pain (Chronic) Arthralgia (Chronic) Osteoporosis (Chronic) Elevated C-reactive protein (CRP) (Chronic) Elevated erythrocyte sedimentation rate (Chronic) CHICHO positive (Chronic) Stenosis, cervical spine (Chronic) Idiopathic osteoarthritis (Chronic) Chronic diastolic heart failure (Chronic) Sicca syndrome (Chronic) Atrial fibrillation (Chronic) Onychomycosis of toenail (Chronic) Mass of skin of right foot (Chronic) Callus of foot (Chronic) Skin fissure (Chronic) Calcaneal spur of both feet (Chronic) Arthritis of both feet (Chronic) Hammertoe (Chronic) Hallux valgus with bunions (Chronic) Ankle joint contracture (Chronic) Plantar fasciitis, right (Chronic) Other dislocation of right foot, subsequent encounter (Chronic) Metatarsalgia, right foot (Chronic) Skin ulcer (Chronic) Peripheral vascular disease (Chronic) Neuropathic pain of ankle (Chronic) Diabetic ulcer of left foot (Chronic) Diabetic ulcer of right foot (Chronic) Cellulitis and abscess of foot (Chronic) Fatigue (Chronic) URI (upper respiratory infection) (Chronic) Cough (Chronic) Diarrhea (Chronic) Ankle sprain and strain (Chronic) Urinary tract infection (Chronic) Urinary tract infection (Chronic) Secondary renal hyperparathyroidism (Chronic) Hypertensive renal disease (Chronic) CKD (chronic kidney disease), stage III (Chronic) Dressing change or removal, surgical wound (Chronic) History of chemotherapy (Chronic) Vitamin D deficiency (Chronic) Ventricular hypertrophy (Chronic) Tremor (Chronic) Sleep apnea (Chronic) Sepsis (Chronic) Respiratory failure, acute (Chronic) Renal cell carcinoma (Chronic) Peripheral neuropathy (Acute) Onychomycosis (Chronic) Malignant lymphoma (Chronic) IBS (irritable bowel syndrome) (Chronic) Hyperlipidemia (Chronic) GERD (gastroesophageal reflux disease) (Chronic) Gait abnormality (Chronic) Edema (Chronic) Diabetes mellitus type 2 with complications (Chronic) Situational depression (Chronic) CHF (congestive heart failure) (Chronic) Back pain (Chronic) Atrial enlargement, left (Chronic) Asthma (Chronic) Surgical history: Past Surgical History (Last Reviewed 05/24/18 @ 13:28 by Kasandra Reardon CMA) History of trigger finger (Chronic) History of tonsillectomy (Chronic) Status post peripherally inserted central catheter (PICC) central line placement (Chronic) History of nephrectomy (Chronic) History of left knee replacement (Chronic) History of kidney surgery (Chronic) History of hysterectomy (Chronic) History of eye surgery (Chronic) History of colonoscopy (Chronic) History of adenoidectomy (Chronic) Pertinent family history: Family History (Last Reviewed 05/24/18 @ 13:28 by Kasandra Reardon CMA) Unknown Family history of malignant neoplasm Cardiac disease Essential hypertension Medical - H&P: Meds Home Medications Medication Instructions Recorded Confirmed Type Bumetanide 2 mg PO QDAY 03/07/15 07/22/18 History Pregabalin [Lyrica] 300 mg PO BID 03/07/15 07/22/18 History Rosuvastatin [Crestor] 10 mg PO HS 03/07/15 07/22/18 History Venlafaxine HCl [Venlafaxine HCl 225 mg PO QDAY 03/07/15 07/22/18 History ER] buPROPion [Wellbutrin Xl] 300 mg PO DAILY 03/07/15 07/22/18 History Losartan Potassium [Cozaar] 100 mg PO DAILY 08/11/17 07/22/18 History busPIRone [Buspar] 10 mg PO BID 08/11/17 07/22/18 History clonazePAM [KlonoPIN] 1 mg PO TID 08/11/17 07/22/18 History Home O2 10/30/17 05/24/18 History acetaminophen-codeine 1 tab PO BID 06/22/18 07/22/18 History Amiodarone HCl [Cordarone] 200 mg PO ONCE 07/22/18 07/22/18 History Beclomethasone Dipropionate [Qvar 1 puff INH BID 07/22/18 07/22/18 History 40] Diclofenac Gel 2 gm TOPICAL Q12HP PRN 07/22/18 07/22/18 History Docusate Sodium [Dulcolax Stool 100 mg PO BID 07/22/18 07/22/18 History Softener] HYDROcodone/APAP 10/325MG [[place] 1 - 2 tab PO Q4H PRN 07/22/18 07/22/18 History 10-325Mg] HYDROcodone/APAP 5/325MG [[place] 1 tab PO Q4HP PRN 07/22/18 07/22/18 History 5-325Mg] Metoprolol Succinate [Toprol Xl] 50 mg PO ONCE 07/22/18 07/22/18 History Ondansetron HCl [Zofran ODT] 4 mg SL Q4-6HP PRN 07/22/18 07/22/18 History Tiotropium Paul [Spiriva] 18 mcg INH DAILY 07/22/18 07/22/18 History Warfarin [Coumadin] 1.5 mg PO DAILY 07/22/18 07/22/18 History oxyCODONE HCL/ACETAMINOPHEN 1 each PO Q4HP PRN 07/22/18 07/22/18 History [Percocet 7.5-325 mg Tablet] Allergies Allergy/AdvReac Type Severity Reaction Status Date / Time Sulfa (Sulfonamide Allergy Intermediate Itching Verified 07/22/18 16:44 Antibiotics) quetiapine Allergy Unknown Unknown Verified 07/22/18 16:44 Iodinated Contrast- Oral and AdvReac Severe Itching Verified 07/22/18 16:44 IV Dye [Iodinated Contrast Media - IV Dye] iodine AdvReac Severe Itching Verified 07/22/18 16:44 Methadone AdvReac Severe Confusion Verified 07/22/18 16:44 Adhesive Tape Allergy Unknown Unknown Uncoded 06/22/18 10:52 Bee Stings Allergy Unknown Unknown Uncoded 06/22/18 10:52 Sun Allergy Unknown Unknown Uncoded 06/22/18 10:52 Medical - H&P: Exam - Constitutional Vitals: Temp Pulse Resp BP Pulse Ox 102.5 F H 72 21 125/114 96 07/22/18 20:29 07/22/18 19:31 07/22/18 19:31 07/22/18 19:31 07/22/18 19:31 Exam: GENERAL: The patient is a well-developed, well-nourished in no apparent distress. Is alert and oriented x3. VITAL SIGNS: Reviewed and as noted elsewhere. HEENT: Head is normocephalic and atraumatic. Extraocular muscles are intact. Pupils are equal, round, and reactive to light. Nares appeared normal. Mouth appears any without lesions. Mucous membranes are dry NECK: Normal to inspection, Supple, No lymphadenopathy or thyromegaly. LUNGS: Air entry equal on both sides, no wheezing, crackles or rhonchi noted. No accessory muscles of respiration HEART: Regular rate and rhythm normal, S1 and S2 heard, no Gallop, S3 or Rub Noted, No Gross murmur heard. ABDOMEN: Soft, nontender, and nondistended. Positive bowel sounds. No hepatosplenomegaly was noted. EXTREMITIES: No cyanosis, clubbing, rash, lesions or edema. left lower extremity pitting edema +, erythema warmth and tendernes, no crepitus, or pus pockets noted. pulses present. NEUROLOGIC: Cranial nerves II through XII are grossly intact. Motor and Sensory System Grossly Intact PSYCHIATRIC: Normal affect, Normal Mood. Appropriate Behavior. SKIN: No ulceration or wounds noted, No jaundice, No rash noted. Medical - H&P: Reslt - Labs CBC & Chem 7: 07/22/18 17:18 07/22/18 17:17 Labs: Short CBC 07/22/18 Range/Units 17:18 WBC 23.4 H (4.5-11.0) K/mcL Hgb 14.1 (12.0-15.0) g/dL Hct 42.2 (36.0-48.0) % Plt Count 207 (140-440) K/mcL BMP 07/22/18 17:17 Sodium 131 L Potassium 4.1 Chloride 89 L Carbon Dioxide 27 BUN 27 H Creatinine 1.4 H Glucose 86 Calcium 9.1 Liver Function 07/22/18 Range/Units 17:17 Total Bilirubin 0.6 (0.0-1.0) mg/dL AST 16 (0-37) U/l ALT 13 (0-40) U/l Alkaline Phosphatase 87 (39-117) U/L Albumin 4.0 (3.2-5.2) gm/dL Urine 07/22/18 Range/Units 18:21 Urine Color Straw Urine Appearance Clear Urine pH 6.0 (5.0-9.0) Ur Specific [place] 1.010 (1.000-1.035) Urine Protein Neg (NEG) mg/dL Urine Glucose (UA) Negative (NEG) mg/dL Medical - H&P: A/P - Narrative A/P Narrative: A/P Cellulitis Left lower extremity cellulitis, no h/o reported trauma, blood cultures sent, treat with IV vanco and Rocephin for now, deescalate per sensitivity Sepsis-WBC is elevated patient is febrile, lactic acid however is normal and blood pressure is normal. IV fluids for now, treat underlying condition Acute Kidney injury- Creat is 1.4, baseline 0.9, IV fluids for now, if worsens will get nephrology evaluation given solitary kidney HTN- Hold bp meds for now, resume once bp stable x 24 hrs DM- insulin ssi for now HLD- resume home dose of statin atrial fibrillation, rate controlled, on amiodarone and coumadin, trend INR, dose to be managed by pharmacy COPD- on 2 L oxygen- no wheeze on exam, duonebs q6hrs for now, inhaled CS . DVT coumadin for now, hep is inr subtherapeutic DNR code status Diet cardiac, carb consistent. Social History - Tobacco smoking status: Current every day smoker - Alcohol alcohol intake frequency: does not drink (denies) - Substance use substance use type: marijuana
[2018-07-22] MEDS ORDERED: VANCOMYCIN 1,000 MG in 0.9 % SODIUM CHLORIDE 250 ML IV ONE (21:58)
[2018-07-22] MEDS ORDERED: DEXTROSE 50% 50 ML VIAL IV PRN (21:58)
[2018-07-22] MEDS ORDERED: HYDROmorphone 2 MG/ML VIAL IV PRN (21:58)
[2018-07-22] MEDS ORDERED: HEPARIN 5,000 UNIT/ML VIAL SQ SCH (21:58)
[2018-07-22] MEDS ORDERED: VANCOMYCIN PER PHARMACY IV ONE (21:58)
[2018-07-22] MEDS ORDERED: NALOXONE HCL 0.4 MG/ML VIAL IV PRN (21:58)
[2018-07-22] MEDS ORDERED: traZODone HCL 50 MG TABLET PO PRN (21:58)
[2018-07-22] MEDS ORDERED: ALBUTEROL SULFATE 2.5 MG/3 ML NEBULIZER NEB PRN (21:58)
[2018-07-22] MEDS ORDERED: cefTRIAXone 1 GM in DEXTROSE 5% IN WATER 50 ML IV SCH (21:58)
[2018-07-22] MEDS ORDERED: DEXTROSE 31 GM ORAL.SUSP PO PRN (21:58)
[2018-07-22] MEDS ORDERED: ONDANSETRON 4 MG/2 ML VIAL IV PRN (21:58)
[2018-07-22] MEDS ORDERED: ONDANSETRON 4 MG/2 ML VIAL ONE (23:04)
[2018-07-22] MEDS ORDERED: HEPARIN 5,000 UNIT/ML VIAL ONE (23:04)
[2018-07-23] MEDS: LACTATED RINGERS 1,000 ML IV SCH ×2 (00:04→04:16)
[2018-07-23] MEDS: 0.9 % SODIUM CHLORIDE 10 ML SYRINGE IV SCH ×4 (00:15→21:46)
[2018-07-23] MEDS ORDERED: oxyCODONE HCL 5 MG TABLET PO ONE (00:30)
[2018-07-23] MEDS ORDERED: IPRATROPIUM/ALBUTEROL 3 ML AMPUL.NEB NEB ONE (00:31)
[2018-07-23] MEDS: IPRATROPIUM/ALBUTEROL 3 ML AMPUL.NEB NEB SCH ×5 (00:34→19:30)
[2018-07-23 05:57] LABS: Basophils # (Auto) 0 K/mcL (0.0-0.3); Basophils % (Auto) 0.1 % (0.0-2.0); Eosinophils # (Auto) 0 K/mcL (0.0-0.7); Eosinophils % (Auto) 0.1 % (0.0-7.0); Lymphocytes # (Auto) 0.6 K/mcL (1.5-4.8); Lymphocytes % (Auto) 4.6 % (15.5-49.0); Mean Cell Volume 88.2 fL (80.0-100.0); Mean Corpuscular HGB Conc 33.4 g/dL (31.0-36.0); Mean Corpuscular Hemoglobin 29.5 pg (26.0-34.0); Monocytes # (Auto) 0.8 K/mcL (0.1-0.9); Monocytes % (Auto) 6.2 % (1.0-12.0); Platelet Count 159 K/mcL (140-440); RBC 3.81 M/mcL (4.00-5.20); Red Cell Distribution Width 15.8 % (11.5-14.5)
[2018-07-23 06:19] LABS: ALT/SGPT 10 U/l (0-40); Albumin 2.6 gm/dL (3.2-5.2); Albumin/Globulin Ratio 0.9 (1.0-2.3); Alkaline Phosphatase 62 U/L (39-117); Bilirubin,Direct < 0.2 mg/dL (0.0-0.3); Blood Urea Nitrogen 21 mg/dl (6-20); Gamma Glutamyl Transpeptidase 32 U/L (5-36); Uric Acid 4.9 mg/dL (2.5-8.0)
--- NOTE | 2018-07-23 07:13 | Emergency Department Note ---
ED Note Addendum Note Addendum: I discussed this case with the mid-level provider and agree with the assessment and plan.
[2018-07-23] MEDS: INSULIN LISPRO 1 UNIT/0.01 ML UNIT SQ SCH ×4 (07:15→21:23)
[2018-07-23] MEDS ORDERED: LACTATED RINGERS 1,000 ML IV ONE (07:21)
[2018-07-23] MEDS ORDERED: ACETAMINOPHEN 325 MG TABLET PO ONE (07:22)
[2018-07-23] MEDS ORDERED: POTASSIUM CHLORIDE 20 MEQ PACKET PO ONE (07:51)
[2018-07-23] MEDS ORDERED: MAGNESIUM SULFATE 2 GM/50 ML BAG IV ONE (07:51)
[2018-07-23] MEDS ORDERED: AMIODARONE HCL 200 MG TABLET PO SCH (08:00)
[2018-07-23] MEDS: clonazePAM 0.5 MG TABLET PO SCH ×3 (08:27→21:13)
[2018-07-23] MEDS: buPROPion 150 MG TAB.XL.24H PO SCH (08:27)
[2018-07-23] MEDS: busPIRone 5 MG TABLET PO SCH ×2 (08:27→21:15)
[2018-07-23] MEDS: DOCUSATE SODIUM 100 MG CAPSULE PO SCH ×3 (08:28→21:23)
[2018-07-23] MEDS: PREGABALIN 150 MG CAPSULE PO SCH ×2 (08:28→21:14)
[2018-07-23] MEDS ORDERED: cefTRIAXone 2 GM VIAL ONE (08:47)
[2018-07-23] MEDS ORDERED: VANCOMYCIN PER PHARMACY IV SCH (09:00)
[2018-07-23] MEDS ORDERED: VENLAFAXINE 75 MG CAP.XL.24H PO SCH (09:00)
[2018-07-23] MEDS ORDERED: cefTRIAXone 1 GM VIAL IV SCH ×2 (09:00)
[2018-07-23] MEDS ORDERED: METOPROLOL SUCCINATE 50 MG TAB.XL.24H PO SCH (09:00)
[2018-07-23] MEDS: cefTRIAXone 2 GM in DEXTROSE 5% IN WATER 50 ML IV SCH (09:11)
[2018-07-23] MEDS: BECLOMETHASONE DIPROPIONATE 40MCG INHALER INH SCH ×2 (09:13→21:45)
[2018-07-23] MEDS: TIOTROPIUM BROMIDE 18 MCG INHALANT INH SCH (09:13)
[2018-07-23] MEDS: VANCOMYCIN 1,500 MG in 0.9 % SODIUM CHLORIDE 500 ML IV SCH (10:27)
--- NOTE | 2018-07-23 12:57 | XRay Report ---
CLINICAL INFORMATION: abnormal breath sounds COMPARISON: 07/22/2018 FINDINGS: Borderline cardiomegaly is unchanged. Mediastinum and pulmonary vessels are normal. Mild chronic bronchitis changes noted. There may be a developing infiltrate in the right base. IMPRESSION: Possible developing infiltrate right base Interpreted and Authenticated by: Jose Xiao 07/23/18
--- NOTE | 2018-07-23 13:23 | Internal Med Progress Note ---
Medical - PN: Subj Patient information: Note initiated : 07/23/18 at 1:14 pm Service Date, if different from initiated Date: [] Patient: Shiela Alas a 58 y/o F admitted on 07/22/18 for Cold symptoms. Chief Complaint: [] Interval history: Ms. Alas is a 58 year old F with history of diabetes who lives by herself. She is on 2 L of oxygen when she sleeps presents to the emergency room today brought in by her caregiver for evaluation of left lower extremity redness. The patient a poor history provider however notes that she started having pain redness and swelling in the left lower extremity since yesterday. She has not been doing well since then. This is associated with fever chills and Reiger's. She also had some nausea and vomiting over the night. Her caregiver who sees her twice a week does not remember having redness or swelling in the lower extremities during the last visit. This was concerning and therefore she was brought to the hospital. The patient has chronic headaches, has some cough and shortness of breath denies any chest pain denies any abdominal pain had some nausea and vomiting as mentioned above, she denies any diarrhea or any urinary complaints. She denies any new joint pains any abnormal skin rashes except for redness on the left lower extremity, she admits to having some anxiety and depression. On presentation in the emergency room she was initially afebrile however later developed a temperature of 102.5, heart rate 72 blood pressure 1 1 6 x 94 saturating around 88-90% on room air with 2 L of oxygen was 96%. Chest x-ray done shows borderline cardiomegaly mild chronic bronchitis EKG was sinus rhythm. Labs show leukocytosis WBC 23,400 hemoglobin 14 platelets 207 lactic acid was 1.2. Sodium 131 potassium 4.1 chloride a 89, bicarbonate 27 creatinine 1.4 baseline around 0.9 glucose 86. Patient has a solitary kidney. Pro calcitonin elevated at 4.16 UA has some mild leukocyte esterase. She was given some fluids blood cultures were sent and started on Rocephin and levofloxacin admitted to the hospital for further management 07/23 Pt seen examined, no acute overnight issues, this AM I was notified of low bp, and low grade fever, pt responded to 1L saline, X ray s? new infiltrate? clinically pt feels better, no new complaints or concerns. Leg still red and cellulitis largely within boundry Pertinent ROS: Denies headache, dizziness Denies chest pain, palpitations Denies cough or shortness of breath Denies abdominal pain, nausea or vomiting. - Constitutional Vitals: Vital Signs Temp Pulse Resp BP Pulse Ox 97.2 F 66 20 118/70 98 07/23/18 11:59 07/23/18 07:21 07/23/18 11:59 07/23/18 11:59 07/23/18 11:59 Period Temp Pulse Resp BP Sys/Bui Pulse Ox Last 24 Hr 97.0 F-102.5 F 39-72 12-25 90-136/50-116 94-100 Intake and Output 07/22/18 07/23/18 07/23/18 21:59 05:59 13:59 Intake Total 1800 / 1800 1400 / 1400 1000 / 1000 Output Total 400 / 400 550 / 550 Balance 1800 / 1800 1000 / 1000 450 / 450 Weight 160 lb 160 lb Intake & Output: Intake & Output 07/22/18 07/23/18 07/23/18 21:59 05:59 13:59 Intake Total 1800 / 1800 1400 / 1400 1000 / 1000 Output Total 400 / 400 550 / 550 Balance 1800 / 1800 1000 / 1000 450 / 450 Weight 160 lb 160 lb Intake: IV 1800 / 1800 1250 / 1250 1000 / 1000 Lactated Ringers 1,000 ml @ 500 1800 / 1800 1000 / 1000 1000 / 1000 mls/hr IV .Q2H [facility] Rx#: [id number] Vancomycin 1,000 mg In Sodium 250 / 250 Chloride 0.9% 250 ml @ 250 mls/ hr IV ONCE ONE Rx#:[id number] Oral 150 / 150 Output: Void Amount 400 / 400 550 / 550 Other: Urine Appearance Cloudy Urine Color Dark Yellow Exam: Constitutional; Afebrile, cooperative, alert, not in distress. Respiratory system: Air Entry equal on both sides, No crackles or wheezing, no rhonchi. CVS- Rate rhythm regular, S1,S2 heard, no gallop, no rub. Abdomen- Soft nontender abdomen, no organomegaly, no tenderness, no guarding or rigidity, [employer]- AOOx3, moving all extremities, no gross focal deficit noted. Left leg cellutlitis, essentially unchanged. Medical - PN: Obj Da - Labs CBC & Chem 7: 07/23/18 04:30 07/23/18 04:30 Labs: Abnormal Lab Results 07/23/18 07/23/18 07/23/18 04:30 04:30 04:30 WBC 13.4 H RBC 3.81 L Hgb 11.2 L Hct 33.6 L RDW 15.8 H MPV 10.5 H Gran % 89.0 H Lymph % (Auto) 4.6 L Gran # 11.9 H Lymph # (Auto) 0.6 L [place] # (Auto) PT 48.0 H INR 5.4 H Sodium Chloride BUN 21 H Creatinine Glucose 67 L Calcium 8.0 L Phosphorus 2.3 L Magnesium 1.3 L Total Protein 5.4 L Albumin 2.6 L Albumin/Globulin Ratio 0.9 L Urine Occult Blood Ur Leukocyte Esterase Urine WBC Urine Bacteria 07/22/18 07/22/18 07/22/18 18:21 17:18 17:17 WBC 23.4 H RBC Hgb Hct RDW 15.4 H MPV 10.8 H Gran % 91.9 H Lymph % (Auto) 2.4 L Gran # 21.5 H Lymph # (Auto) 0.6 L Lares # (Auto) 1.1 H PT INR Sodium 131 L Chloride 89 L BUN 27 H Creatinine 1.4 H Glucose Calcium Phosphorus Magnesium Total Protein Albumin Albumin/Globulin Ratio Urine Occult Blood 0.03 A Ur Leukocyte Esterase 25 A Urine WBC 5 H Urine Bacteria Few A Meds: Medications Acetaminophen (Tylenol) 650 mg PO Q6HP PRN PRN Reason: PAIN/FEVER > 101 Albuterol Sulfate (Ventolin) 2.5 mg NEB Q2HP PRN PRN Reason: Shortness Of Breath Albuterol/Ipratropium (Duoneb) 3 ml NEB Q6HRT [facility] Last Admin: 07/23/18 07:45 Dose: Not Given Atorvastatin Calcium (Lipitor) 20 mg PO HS [facility] Beclomethasone Dipropionate (Qvar 40) 1 puff INH BID [facility] Last Admin: 07/23/18 09:13 Dose: Not Given Bupropion HCl (Wellbutrin Xl) 300 mg PO DAILY [facility] Last Admin: 07/23/18 08:27 Dose: 300 mg Buspirone HCl (Buspar) 10 mg PO BID [facility] Last Admin: 07/23/18 08:27 Dose: 10 mg Calcitriol (Rocaltrol) 0.25 mcg PO DAILY [facility] Clonazepam (Klonopin) 1 mg PO TID [facility] Last Admin: 07/23/18 08:27 Dose: 1 mg Dextrose (Dextrose 50%) 0 ml IV UD PRN PRN Reason: Hypoglycemia Diagnostic Test (Pha) (Accu-Chek) 1 each FS ACHS [facility] Last Admin: 07/23/18 12:04 Dose: 1 each Docusate Sodium (Colace) 100 mg PO BID [facility] Last Admin: 07/23/18 08:29 Dose: Not Given Ergocalciferol (Drisdol) 50,000 unit PO Q2W [facility] Glucose (Insta-Glucose) 15 gm PO PRN PRN PRN Reason: Hypoglycemia Hydromorphone HCl (Dilaudid) 0.5 mg IV Q2HP PRN PRN Reason: PAIN LEVEL > 6 Ceftriaxone Sodium 2 gm/ (Dextrose) 50 mls @ 100 mls/hr IV Q24H [facility] Last Admin: 07/23/18 09:11 Dose: 100 mls/hr Vancomycin HCl 1,500 mg/ (Sodium Chloride) 500 mls @ 333.3 mls/hr IV Q24H [facility] Last Admin: 07/23/18 10:27 Dose: 333.3 mls/hr Insulin Human Lispro (Humalog) 0 unit SQ ACHS [facility]; Protocol Last Admin: 07/23/18 12:13 Dose: Not Given Leflunomide (Arava) 20 mg PO DAILY [facility] Naloxone HCl (Narcan) 0.1 mg IV Q2MIN PRN PRN Reason: Opiate Reversal Non-Formulary Medication (Venlafaxine Hcl [Venlafaxine Hcl Er]) 225 mg PO DAILY [facility] Omeprazole (Prilosec) 40 mg PO ACB [facility] Ondansetron HCl (Zofran) 4 mg IV Q6HP PRN PRN Reason: Nausea And Vomiting Oxycodone HCl (Roxicodone) 5 mg PO Q4HP PRN PRN Reason: PAIN LEVEL 3-6 Pregabalin (Lyrica) 300 mg PO BID [facility] Last Admin: 07/23/18 08:28 Dose: 300 mg Sodium Chloride (Saline Flush) 10 ml IV Q8 [facility] Last Admin: 07/23/18 08:04 Dose: 10 ml Tiotropium [place] (Spiriva) 18 mcg INH DAILY [facility] Last Admin: 07/23/18 09:13 Dose: Not Given Trazodone HCl (Desyrel) 50 mg PO HSP PRN PRN Reason: Insomnia Vancomycin HCl (Vancomycin Per Pharmacy) 1 order IV UD [place] Warfarin Sodium (Coumadin Per Pharmacy) 1 order PO UD [place] Medical - PN: A/P - Time Spent With Patient Total time spent is greater than 50% in coordination of care (as documented) at patient's floor/unit and/or counseling patient: - Narrative A/P Narrative: A/P Cellulitis Left lower extremity cellulitis, no h/o reported trauma, blood cultures postive for gpc in chains, likely strep, con vanco and rocephin continue same Gram positive bactermia- likelyi strep, on rocehin and vanco, await isolation, descalate per sensitivity. Sepsis-wbc trending down, pt had low bp this am, responded to fluids, otherwise stable. Acute Kidney injury- Creat is trending down. HTN- Hold bp meds for now, resume once bp stable x 24 hrs DM- insulin ssi for now HLD- resume home dose of statin atrial fibrillation, rate controlled, not on amio as per last med reconciliation , d/c same. continue to dose coumadin per pharmacy. COPD- on 2 L oxygen- no wheeze on exam, duonebs q6hrs for now, inhaled CS . DVT Coumadin for now, hep is inr subtherapeutic DNR code status Diet cardiac, carb consistent. Medical - PN: Qual - VTE Deep Vein Thrombosis/Pulmonary Embolism Present on Admission: No
[2018-07-23] MEDS: LEFLUNOMIDE 20 MG TABLET PO SCH (14:04)
[2018-07-23] MEDS: ACETAMINOPHEN 325 MG TABLET PO PRN (19:05)
[2018-07-23] MEDS: oxyCODONE HCL 5 MG TABLET PO PRN (21:13)
[2018-07-23] MEDS: ATORVASTATIN 20 MG TABLET PO SCH (21:15)
[2018-07-24] MEDS: IPRATROPIUM/ALBUTEROL 3 ML AMPUL.NEB NEB SCH ×4 (00:32→18:45)
[2018-07-24] MEDS: oxyCODONE HCL 5 MG TABLET PO PRN ×2 (04:25→20:04)
[2018-07-24 05:20] LABS: Basophils # (Auto) 0 K/mcL (0.0-0.3); Basophils % (Auto) 0.5 % (0.0-2.0); Eosinophils # (Auto) 0.1 K/mcL (0.0-0.7); Eosinophils % (Auto) 1.5 % (0.0-7.0); Granulocytes % (Auto) 70.2 % (38.0-78.0); Lymphocytes # (Auto) 0.8 K/mcL (1.5-4.8); Lymphocytes % (Auto) 12.8 % (15.5-49.0); Mean Cell Volume 87.8 fL (80.0-100.0); Mean Corpuscular HGB Conc 33.4 g/dL (31.0-36.0); Mean Corpuscular Hemoglobin 29.3 pg (26.0-34.0); Monocytes # (Auto) 0.9 K/mcL (0.1-0.9); Platelet Count 154 K/mcL (140-440); RBC 3.88 M/mcL (4.00-5.20); Red Cell Distribution Width 15.8 % (11.5-14.5)
[2018-07-24 05:44] LABS: ALT/SGPT 18 U/l (0-40); Albumin 2.8 gm/dL (3.2-5.2); Alkaline Phosphatase 67 U/L (39-117); Bilirubin,Direct < 0.2 mg/dL (0.0-0.3); Blood Urea Nitrogen 16 mg/dl (6-20); Gamma Glutamyl Transpeptidase 33 U/L (5-36); Uric Acid 4.3 mg/dL (2.5-8.0)
[2018-07-24] MEDS: 0.9 % SODIUM CHLORIDE 10 ML SYRINGE IV SCH ×3 (06:01→20:09)
[2018-07-24] MEDS: INSULIN LISPRO 1 UNIT/0.01 ML UNIT SQ SCH ×4 (06:48→20:08)
[2018-07-24] MEDS: OMEPRAZOLE 20 MG CAPSULE PO SCH (08:54)
[2018-07-24] MEDS: clonazePAM 0.5 MG TABLET PO SCH ×3 (08:55→20:04)
[2018-07-24] MEDS: ACETAMINOPHEN 325 MG TABLET PO PRN ×2 (08:55→15:21)
[2018-07-24] MEDS: VENLAFAXINE 75 MG CAP.XL.24H PO SCH (08:55)
[2018-07-24] MEDS: busPIRone 5 MG TABLET PO SCH ×2 (08:55→20:04)
[2018-07-24] MEDS: buPROPion 150 MG TAB.XL.24H PO SCH (08:55)
[2018-07-24] MEDS: CALCITRIOL 0.25 MCG CAPSULE PO SCH (08:56)
[2018-07-24] MEDS: DOCUSATE SODIUM 100 MG CAPSULE PO SCH ×2 (08:56→20:08)
[2018-07-24] MEDS: PREGABALIN 150 MG CAPSULE PO SCH ×2 (08:56→20:04)
[2018-07-24] MEDS: LEFLUNOMIDE 20 MG TABLET PO SCH (08:56)
[2018-07-24] MEDS: TIOTROPIUM BROMIDE 18 MCG INHALANT INH SCH (08:57)
[2018-07-24] MEDS: cefTRIAXone 2 GM in DEXTROSE 5% IN WATER 50 ML IV SCH (08:57)
[2018-07-24] MEDS: VANCOMYCIN 1,500 MG in 0.9 % SODIUM CHLORIDE 500 ML IV SCH (09:39)
[2018-07-24] MEDS: BECLOMETHASONE DIPROPIONATE 40MCG INHALER INH SCH ×2 (10:21→20:09)
--- NOTE | 2018-07-24 14:19 | Internal Med Progress Note ---
Medical - PN: Subj Patient information: Note initiated : 07/24/18 at 2:17 pm Service Date, if different from initiated Date: [] Patient: Shiela Alas a 58 y/o F admitted on 07/22/18 for Cold symptoms. Chief Complaint: [] Interval history: Ms. Alas is a 58 year old F with history of diabetes who lives by herself. She is on 2 L of oxygen when she sleeps presents to the emergency room today brought in by her caregiver for evaluation of left lower extremity redness. The patient a poor history provider however notes that she started having pain redness and swelling in the left lower extremity since yesterday. She has not been doing well since then. This is associated with fever chills and Reiger's. She also had some nausea and vomiting over the night. Her caregiver who sees her twice a week does not remember having redness or swelling in the lower extremities during the last visit. This was concerning and therefore she was brought to the hospital. The patient has chronic headaches, has some cough and shortness of breath denies any chest pain denies any abdominal pain had some nausea and vomiting as mentioned above, she denies any diarrhea or any urinary complaints. She denies any new joint pains any abnormal skin rashes except for redness on the left lower extremity, she admits to having some anxiety and depression. On presentation in the emergency room she was initially afebrile however later developed a temperature of 102.5, heart rate 72 blood pressure 1 1 6 x 94 saturating around 88-90% on room air with 2 L of oxygen was 96%. Chest x-ray done shows borderline cardiomegaly mild chronic bronchitis EKG was sinus rhythm. Labs show leukocytosis WBC 23,400 hemoglobin 14 platelets 207 lactic acid was 1.2. Sodium 131 potassium 4.1 chloride a 89, bicarbonate 27 creatinine 1.4 baseline around 0.9 glucose 86. Patient has a solitary kidney. Pro calcitonin elevated at 4.16 UA has some mild leukocyte esterase. She was given some fluids blood cultures were sent and started on Rocephin and levofloxacin admitted to the hospital for further management 07/23 Pt seen examined, no acute overnight issues, this AM I was notified of low bp, and low grade fever, pt responded to 1L saline, X ray s? new infiltrate? clinically pt feels better, no new complaints or concerns. Leg still red and cellulitis largely within boundary 07/24 Pt seen examined, no acute overnight issues, tolerating po well labs stable, vital sings stable blood cultures repeat sent today first is Group C step, sensitivity pending, Remains on vanco and rocephin for now. anticipate d/c home tomorrow, if repeat blood culture are negative. Pertinent ROS: Denies headache, dizziness Denies chest pain, palpitations Denies cough or shortness of breath Denies abdominal pain, nausea or vomiting. - Constitutional Vitals: Vital Signs Temp Pulse Resp BP Pulse Ox 98.8 F 74 18 109/70 92 07/24/18 11:39 07/24/18 11:39 07/24/18 11:39 07/24/18 11:39 07/24/18 11:39 Period Temp Pulse Resp BP Sys/Bui Pulse Ox Last 24 Hr 98.2 F-101.3 F 57-74 16-24 99-116/58-71 92-96 Intake and Output 07/24/18 07/24/18 07/24/18 05:59 13:59 21:59 Intake Total 600 / 600 Output Total 900 / 900 375 / 375 Balance -300 / -300 -375 / -375 Intake & Output: Intake & Output 07/24/18 07/24/18 07/24/18 05:59 13:59 21:59 Intake Total 600 / 600 Output Total 900 / 900 375 / 375 Balance -300 / -300 -375 / -375 Intake: Oral 600 / 600 Output: Void Amount 900 / 900 375 / 375 Other: Meal Breakfast Percent of Meal Consumed 50% Urine Appearance Clear Urine Color Straw Urine Odor Normal Stool Size Small Stool Color Brown Stool Consistency Soft Exam: Constitutional; Afebrile, cooperative, alert, not in distress. Respiratory system: Air Entry equal on both sides, No crackles or wheezing, no rhonchi. CVS- Rate rhythm regular, S1,S2 heard, no gallop, no rub. Abdomen- Soft nontender abdomen, no organomegaly, no tenderness, no guarding or rigidity, [employer]- AOOx3, moving all extremities, no gross focal deficit noted. Left lower extremity : erthema improved redness less than marked, tenderness improved. Medical - PN: Obj Da - Labs CBC & Chem 7: 07/24/18 04:10 07/24/18 04:10 Labs: Abnormal Lab Results 07/24/18 07/24/18 07/24/18 04:10 04:10 04:10 WBC RBC 3.88 L Hgb 11.4 L Hct 34.1 L RDW 15.8 H MPV Gran % Lymph % (Auto) 12.8 L [place] % (Auto) 15.0 H Gran # Lymph # (Auto) 0.8 L [place] # (Auto) PT 32.6 H INR 3.2 H Sodium Chloride BUN Creatinine Glucose 69 L Calcium 8.5 L Phosphorus 2.4 L Magnesium Total Protein 5.6 L Albumin 2.8 L Albumin/Globulin Ratio Triglycerides 157 H Urine Occult Blood Ur Leukocyte Esterase Urine WBC Urine Bacteria 07/23/18 07/23/18 07/23/18 04:30 04:30 04:30 WBC 13.4 H RBC 3.81 L Hgb 11.2 L Hct 33.6 L RDW 15.8 H MPV 10.5 H Gran % 89.0 H Lymph % (Auto) 4.6 L [place] % (Auto) Gran # 11.9 H Lymph # (Auto) 0.6 L [place] # (Auto) PT 48.0 H INR 5.4 H Sodium Chloride BUN 21 H Creatinine Glucose 67 L Calcium 8.0 L Phosphorus 2.3 L Magnesium 1.3 L Total Protein 5.4 L Albumin 2.6 L Albumin/Globulin Ratio 0.9 L Triglycerides Urine Occult Blood Ur Leukocyte Esterase Urine WBC Urine Bacteria 07/22/18 07/22/18 07/22/18 18:21 17:18 17:17 WBC 23.4 H RBC Hgb Hct RDW 15.4 H MPV 10.8 H Gran % 91.9 H Lymph % (Auto) 2.4 L [place] % (Auto) Gran # 21.5 H Lymph # (Auto) 0.6 L [place] # (Auto) 1.1 H PT INR Sodium 131 L Chloride 89 L BUN 27 H Creatinine 1.4 H Glucose Calcium Phosphorus Magnesium Total Protein Albumin Albumin/Globulin Ratio Triglycerides Urine Occult Blood 0.03 A Ur Leukocyte Esterase 25 A Urine WBC 5 H Urine Bacteria Few A Meds: Medications Acetaminophen (Tylenol) 650 mg PO Q6HP PRN PRN Reason: PAIN/FEVER > 101 Last Admin: 07/24/18 08:55 Dose: 650 mg Albuterol Sulfate (Ventolin) 2.5 mg NEB Q2HP PRN PRN Reason: Shortness Of Breath Albuterol/Ipratropium (Duoneb) 3 ml NEB Q6HRT [facility] Last Admin: 07/24/18 13:16 Dose: Not Given Atorvastatin Calcium (Lipitor) 20 mg PO HS [facility] Last Admin: 07/23/18 21:15 Dose: 20 mg Beclomethasone Dipropionate (Qvar 40) 1 puff INH BID [facility] Last Admin: 07/24/18 10:21 Dose: Not Given Bupropion HCl (Wellbutrin Xl) 300 mg PO DAILY [facility] Last Admin: 07/24/18 08:55 Dose: 300 mg Buspirone HCl (Buspar) 10 mg PO BID [facility] Last Admin: 07/24/18 08:55 Dose: 10 mg Calcitriol (Rocaltrol) 0.25 mcg PO DAILY [facility] Last Admin: 07/24/18 08:56 Dose: 0.25 mcg Clonazepam (Klonopin) 1 mg PO TID [facility] Last Admin: 07/24/18 08:55 Dose: 1 mg Dextrose (Dextrose 50%) 0 ml IV UD PRN PRN Reason: Hypoglycemia Diagnostic Test (Pha) (Accu-Chek) 1 each FS ACHS [facility] Last Admin: 07/24/18 11:20 Dose: 1 each Docusate Sodium (Colace) 100 mg PO BID [facility] Last Admin: 07/24/18 08:56 Dose: Not Given Ergocalciferol (Drisdol) 50,000 unit PO Q2W [facility] Glucose (Insta-Glucose) 15 gm PO PRN PRN PRN Reason: Hypoglycemia Hydromorphone HCl (Dilaudid) 0.5 mg IV Q2HP PRN PRN Reason: PAIN LEVEL > 6 Ceftriaxone Sodium 2 gm/ (Dextrose) 50 mls @ 100 mls/hr IV Q24H [facility] Last Admin: 07/24/18 08:57 Dose: 100 mls/hr Vancomycin HCl 1,500 mg/ (Sodium Chloride) 500 mls @ 333.3 mls/hr IV Q24H [facility] Last Admin: 07/24/18 09:39 Dose: 333.3 mls/hr Insulin Human Lispro (Humalog) 0 unit SQ ACHS [facility]; Protocol Last Admin: 07/24/18 11:21 Dose: Not Given Leflunomide (Arava) 20 mg PO DAILY [facility] Last Admin: 07/24/18 08:56 Dose: Not Given Naloxone HCl (Narcan) 0.1 mg IV Q2MIN PRN PRN Reason: Opiate Reversal Omeprazole (Prilosec) 40 mg PO ACB [facility] Last Admin: 07/24/18 08:54 Dose: 40 mg Ondansetron HCl (Zofran) 4 mg IV Q6HP PRN PRN Reason: Nausea And Vomiting Oxycodone HCl (Roxicodone) 5 mg PO Q4HP PRN PRN Reason: PAIN LEVEL 3-6 Last Admin: 07/24/18 04:25 Dose: 5 mg Pregabalin (Lyrica) 300 mg PO BID [facility] Last Admin: 07/24/18 08:56 Dose: 300 mg Sodium Chloride (Saline Flush) 10 ml IV Q8 [facility] Last Admin: 07/24/18 06:01 Dose: 10 ml Tiotropium [place] (Spiriva) 18 mcg INH DAILY [facility] Last Admin: 07/24/18 08:57 Dose: Not Given Trazodone HCl (Desyrel) 50 mg PO HSP PRN PRN Reason: Insomnia Vancomycin HCl (Vancomycin Per Pharmacy) 1 order IV [facility] Venlafaxine HCl (Effexor Xr) 225 mg PO DAILY [facility] Last Admin: 07/24/18 08:55 Dose: 225 mg Warfarin Sodium (Coumadin Per Pharmacy) 1 order PO [facility] Medical - PN: A/P - Time Spent With Patient Total time spent is greater than 50% in coordination of care (as documented) at patient's floor/unit and/or counseling patient: - Narrative A/P Narrative: A/P Cellulitis Left lower extremity cellulitis, no h/o reported trauma, blood cultures positive for Group C strep, on vanco and Rochepin, Gram positive bacteremia- likely strep, on Rocephin and vanco, await isolation, deescalate per sensitivity. Sepsis-resolved. WBC normalized Acute Kidney injury- Creat is trending down, 1.0 today HTN- Hold bp meds for now, resume once bp stable x 24 hrs, BP stil normal today 07/24, continue to hold bp meds DM- insulin ssi for now HLD- resume home dose of statin atrial fibrillation, rate controlled, not on amiodarone as per last med reconciliation, d/c same. continue to dose coumadin per pharmacy. COPD- on 2 L oxygen- no wheeze on exam, duonebs q6hrs for now, inhaled CS . DVT Coumadin for now, hep is inr subtherapeutic DNR code status Diet cardiac, carb consistent. Medical - PN: Qual - VTE Deep Vein Thrombosis/Pulmonary Embolism Present on Admission: No
--- NOTE | 2018-07-24 15:52 | Internal Med Progress Note ---
Medical - PN: Subj Patient information: Note initiated : 07/24/18 at 3:48 pm Service Date, if different from initiated Date: [] Patient: Shiela Alas a 58 y/o F admitted on 07/22/18 for Cold symptoms. Chief Complaint: [] Interval history: Ms. Alas is a 58 year old F with history of diabetes who lives by herself. She is on 2 L of oxygen when she sleeps presents to the emergency room today brought in by her caregiver for evaluation of left lower extremity redness. The patient a poor history provider however notes that she started having pain redness and swelling in the left lower extremity since yesterday. She has not been doing well since then. This is associated with fever chills and Reiger's. She also had some nausea and vomiting over the night. Her caregiver who sees her twice a week does not remember having redness or swelling in the lower extremities during the last visit. This was concerning and therefore she was brought to the hospital. The patient has chronic headaches, has some cough and shortness of breath denies any chest pain denies any abdominal pain had some nausea and vomiting as mentioned above, she denies any diarrhea or any urinary complaints. She denies any new joint pains any abnormal skin rashes except for redness on the left lower extremity, she admits to having some anxiety and depression. On presentation in the emergency room she was initially afebrile however later developed a temperature of 102.5, heart rate 72 blood pressure 1 1 6 x 94 saturating around 88-90% on room air with 2 L of oxygen was 96%. Chest x-ray done shows borderline cardiomegaly mild chronic bronchitis EKG was sinus rhythm. Labs show leukocytosis WBC 23,400 hemoglobin 14 platelets 207 lactic acid was 1.2. Sodium 131 potassium 4.1 chloride a 89, bicarbonate 27 creatinine 1.4 baseline around 0.9 glucose 86. Patient has a solitary kidney. Pro calcitonin elevated at 4.16 UA has some mild leukocyte esterase. She was given some fluids blood cultures were sent and started on Rocephin and levofloxacin admitted to the hospital for further management 07/23 Pt seen examined, no acute overnight issues, this AM I was notified of low bp, and low grade fever, pt responded to 1L saline, X ray s? new infiltrate? clinically pt feels better, no new complaints or concerns. Leg still red and cellulitis largely within boundary 07/24 Pt seen examined, no acute overnight issues, tolerating po well labs stable, vital sings stable blood cultures repeat sent today first is Group C step, sensitivity pending, Remains on vanco and rocephin for now. anticipate d/c home tomorrow, if repeat blood culture are negative. - Constitutional Vitals: Vital Signs Temp Pulse Resp BP Pulse Ox 98.8 F 74 18 109/70 92 07/24/18 11:39 07/24/18 11:39 07/24/18 11:39 07/24/18 11:39 07/24/18 11:39 Period Temp Pulse Resp BP Sys/Bui Pulse Ox Last 24 Hr 98.2 F-101.3 F 57-74 16-24 99-116/58-71 92-96 Intake and Output 07/24/18 07/24/18 07/24/18 05:59 13:59 21:59 Intake Total 600 / 600 550 / 550 Output Total 900 / 900 375 / 375 Balance -300 / -300 -375 / -375 550 / 550 Intake & Output: Intake & Output 07/24/18 07/24/18 07/24/18 05:59 13:59 21:59 Intake Total 600 / 600 550 / 550 Output Total 900 / 900 375 / 375 Balance -300 / -300 -375 / -375 550 / 550 Intake: IV 550 / 550 Vancomycin 1,500 mg In Sodium 500 / 500 Chloride 0.9% 500 ml @ 333.3 mls/hr IV Q24H [place] Rx#: [id number] Rocephin 2 gm In Dextrose 5% in 50 / 50 Water 50 ml @ 100 mls/hr IV Q24H [facility] Rx#:[id number] Oral 600 / 600 Output: Void Amount 900 / 900 375 / 375 Other: Meal Breakfast Percent of Meal Consumed 50% Urine Appearance Clear Urine Color Straw Urine Odor Normal Stool Size Small Stool Color Brown Stool Consistency Soft Exam: General: Alert, Awake, No acute Distress Eyes/N/T: EOMI, Head/Neck: neck supple, CV: RRR, No murmurs, normal s1/s2 Pulm: Clear b/l, no wheezing/rhonchi/rales Abd: soft, nontender, +BS x4 Ext: LLE with erythema/tenderness Neuro: Alert, no focal deficits, moves all extremities Skin: warm/dry Medical - PN: Obj Da - Labs CBC & Chem 7: 07/24/18 04:10 07/24/18 04:10 Labs: Abnormal Lab Results 07/24/18 07/24/18 07/24/18 04:10 04:10 04:10 WBC RBC 3.88 L Hgb 11.4 L Hct 34.1 L RDW 15.8 H MPV Gran % Lymph % (Auto) 12.8 L [place] % (Auto) 15.0 H Gran # Lymph # (Auto) 0.8 L [place] # (Auto) PT 32.6 H INR 3.2 H Sodium Chloride BUN Creatinine Glucose 69 L Calcium 8.5 L Phosphorus 2.4 L Magnesium Total Protein 5.6 L Albumin 2.8 L Albumin/Globulin Ratio Triglycerides 157 H Urine Occult Blood Ur Leukocyte Esterase Urine WBC Urine Bacteria 07/23/18 07/23/18 07/23/18 04:30 04:30 04:30 WBC 13.4 H RBC 3.81 L Hgb 11.2 L Hct 33.6 L RDW 15.8 H MPV 10.5 H Gran % 89.0 H Lymph % (Auto) 4.6 L [place] % (Auto) Gran # 11.9 H Lymph # (Auto) 0.6 L [place] # (Auto) PT 48.0 H INR 5.4 H Sodium Chloride BUN 21 H Creatinine Glucose 67 L Calcium 8.0 L Phosphorus 2.3 L Magnesium 1.3 L Total Protein 5.4 L Albumin 2.6 L Albumin/Globulin Ratio 0.9 L Triglycerides Urine Occult Blood Ur Leukocyte Esterase Urine WBC Urine Bacteria 07/22/18 07/22/18 07/22/18 18:21 17:18 17:17 WBC 23.4 H RBC Hgb Hct RDW 15.4 H MPV 10.8 H Gran % 91.9 H Lymph % (Auto) 2.4 L [place] % (Auto) Gran # 21.5 H Lymph # (Auto) 0.6 L [place] # (Auto) 1.1 H PT INR Sodium 131 L Chloride 89 L BUN 27 H Creatinine 1.4 H Glucose Calcium Phosphorus Magnesium Total Protein Albumin Albumin/Globulin Ratio Triglycerides Urine Occult Blood 0.03 A Ur Leukocyte Esterase 25 A Urine WBC 5 H Urine Bacteria Few A Meds: Medications Acetaminophen (Tylenol) 650 mg PO Q6HP PRN PRN Reason: PAIN/FEVER > 101 Last Admin: 07/24/18 15:21 Dose: 650 mg Albuterol Sulfate (Ventolin) 2.5 mg NEB Q2HP PRN PRN Reason: Shortness Of Breath Albuterol/Ipratropium (Duoneb) 3 ml NEB Q6HRT [facility] Last Admin: 07/24/18 13:16 Dose: Not Given Atorvastatin Calcium (Lipitor) 20 mg PO HS [facility] Last Admin: 07/23/18 21:15 Dose: 20 mg Beclomethasone Dipropionate (Qvar 40) 1 puff INH BID [facility] Last Admin: 07/24/18 10:21 Dose: Not Given Bupropion HCl (Wellbutrin Xl) 300 mg PO DAILY [facility] Last Admin: 07/24/18 08:55 Dose: 300 mg Buspirone HCl (Buspar) 10 mg PO BID [facility] Last Admin: 07/24/18 08:55 Dose: 10 mg Calcitriol (Rocaltrol) 0.25 mcg PO DAILY [facility] Last Admin: 07/24/18 08:56 Dose: 0.25 mcg Clonazepam (Klonopin) 1 mg PO TID [facility] Last Admin: 07/24/18 15:21 Dose: 1 mg Dextrose (Dextrose 50%) 0 ml IV UD PRN PRN Reason: Hypoglycemia Diagnostic Test (Pha) (Accu-Chek) 1 each FS ACHS [facility] Last Admin: 07/24/18 11:20 Dose: 1 each Docusate Sodium (Colace) 100 mg PO BID [facility] Last Admin: 07/24/18 08:56 Dose: Not Given Ergocalciferol (Drisdol) 50,000 unit PO Q2W [facility] Glucose (Insta-Glucose) 15 gm PO PRN PRN PRN Reason: Hypoglycemia Hydromorphone HCl (Dilaudid) 0.5 mg IV Q2HP PRN PRN Reason: PAIN LEVEL > 6 Ceftriaxone Sodium 2 gm/ (Dextrose) 50 mls @ 100 mls/hr IV Q24H [facility] Last Infusion: 07/24/18 15:22 Dose: Infused Vancomycin HCl 1,500 mg/ (Sodium Chloride) 500 mls @ 333.3 mls/hr IV Q24H [facility] Last Infusion: 07/24/18 15:22 Dose: Infused Insulin Human Lispro (Humalog) 0 unit SQ ACHS [facility]; Protocol Last Admin: 07/24/18 11:21 Dose: Not Given Leflunomide (Arava) 20 mg PO DAILY [facility] Last Admin: 07/24/18 08:56 Dose: Not Given Naloxone HCl (Narcan) 0.1 mg IV Q2MIN PRN PRN Reason: Opiate Reversal Omeprazole (Prilosec) 40 mg PO ACB [facility] Last Admin: 07/24/18 08:54 Dose: 40 mg Ondansetron HCl (Zofran) 4 mg IV Q6HP PRN PRN Reason: Nausea And Vomiting Oxycodone HCl (Roxicodone) 5 mg PO Q4HP PRN PRN Reason: PAIN LEVEL 3-6 Last Admin: 07/24/18 04:25 Dose: 5 mg Pregabalin (Lyrica) 300 mg PO BID [facility] Last Admin: 07/24/18 08:56 Dose: 300 mg Sodium Chloride (Saline Flush) 10 ml IV Q8 [facility] Last Admin: 07/24/18 15:23 Dose: 10 ml Tiotropium [place] (Spiriva) 18 mcg INH DAILY [facility] Last Admin: 07/24/18 08:57 Dose: Not Given Trazodone HCl (Desyrel) 50 mg PO HSP PRN PRN Reason: Insomnia Vancomycin HCl (Vancomycin Per Pharmacy) 1 order IV [facility] [facility] Venlafaxine HCl (Effexor Xr) 225 mg PO DAILY [facility] Last Admin: 07/24/18 08:55 Dose: 225 mg Warfarin Sodium (Coumadin Per Pharmacy) 1 order PO UD [facility] Medical - PN: A/P - Time Spent With Patient Total time spent is greater than 50% in coordination of care (as documented) at patient's floor/unit and/or counseling patient: - Narrative A/P Narrative: A/P *Cellulitis Left lower extremity: no h/o reported trauma, blood cultures positive for Group C strep, on vanco and Rochepin, *Gram positive bacteremia ?group C: likely strep, on Rocephin and vanco, await isolation, deescalate per sensitivity. -if group C will need 14 days of IV Abx, place PICC when repeat BC neg *Sepsis: resolved *Acute Kidney injury: Creat improved *HTN: Hold bp meds for now, resume once bp stable x 24 hrs, BP still low-normal today 07/24, continue to hold bp meds *DM: insulin ssi for now *Atrial fibrillation chronic: rate controlled, not on amiodarone as per last med reconciliation, d/c same. continue to dose coumadin per pharmacy. *COPD (on 2 L oxygen): no wheeze on exam, duonebs q6hrs for now, inhaled CS . *Hyponatremia/mag: resolved *ppx: Coumadin per pharm DNR code status Medical - PN: Qual - VTE Deep Vein Thrombosis/Pulmonary Embolism Present on Admission: No
--- NOTE | 2018-07-24 16:01 | Discharge Summary ---
Medical - DS: Prov Patient information: Note initiated : 07/24/18 at 3:52 pm Service Date, if different from initiated Date: [] Patient: Shiela Alas 58 y/o F admitted on 07/22/18 for Cold symptoms. Chief Complaint: [] Date of admission: 07/22/18 21:49 Discharge date: 07/25/18 Primary care physician: Li Ritter Consults: 07/22/18 Consult to Physician [CONS] Stat Comment: Consulting Provider: Magnus Mancilla Reason For Exam: Physician to Consult Medical - DS: Meds - Discharge Medications Prescriptions: cefTRIAXone [Rocephin] 2 gm IV Q12H #11 vial Active and Home Medications: Home Medications Bumetanide 2 mg PO QDAY 03/07/15 [History Confirmed 07/22/18 Last Taken 11/21/17 ] Pregabalin [Lyrica] 300 mg PO BID 03/07/15 [History Confirmed 07/22/18 Last Taken 10/29/17] Rosuvastatin [Crestor] 10 mg PO HS 03/07/15 [History Confirmed 07/22/18 Last Taken 11/21/17 20:00] buPROPion [Wellbutrin Xl] 300 mg PO DAILY 03/07/15 [History Confirmed 07/22/18 Last Taken 11/21/17 08:00] Losartan Potassium [Cozaar] 100 mg PO DAILY 08/11/17 [History Confirmed Last Taken 10/29/17] busPIRone [Buspar] 10 mg PO BID 08/11/17 [History Confirmed 07/22/18 Last Taken 10/29/17] clonazePAM [KlonoPIN] 1 mg PO TID 08/11/17 [History Confirmed 07/22/18 Last Taken 10/28/17] acetaminophen-codeine 1 tab PO BID 06/22/18 [History Confirmed 07/22/18 Last Taken Unknown] Warfarin [Coumadin] 5 mg PO DAILY 07/22/18 [History Confirmed 07/23/18 Last Taken Unknown] Calcitriol [Rocaltrol] 0.25 mcg PO DAILY 07/23/18 [History Confirmed 07/23/18 Last Taken Unknown] Ergocalciferol (Vitamin D2) [Vitamin D2] 50,000 unit PO Q2W 07/23/18 [History Confirmed 07/23/18 Last Taken Unknown] Leflunomide [Arava] 20 mg PO DAILY 07/23/18 [History Confirmed 07/23/18 Last Taken Unknown] Nebivolol HCl [Bystolic] 10 mg PO DAILY 07/23/18 [History Confirmed 07/23/18 Last Taken Unknown] Omeprazole [PriLOSEC] 40 mg PO ACB 07/23/18 [History Confirmed 07/23/18 Last Taken Unknown] Spironolactone [Aldactone] 25 mg PO DAILY 07/23/18 [History Confirmed 07/23/18 Last Taken Unknown] Venlafaxine HCl [Venlafaxine HCl ER] 225 mg PO DAILY 07/23/18 [History Confirmed 07/23/18 Last Taken Unknown] amLODIPine [Norvasc] 5 mg PO DAILY 07/23/18 [History Confirmed 07/23/18 Last Taken Unknown] Home Medications Bumetanide 2 mg PO QDAY 03/07/15 [History Confirmed 07/22/18 Last Taken 11/21/17 ] Pregabalin [Lyrica] 300 mg PO BID 03/07/15 [History Confirmed 07/22/18 Last Taken 10/29/17] Rosuvastatin [Crestor] 10 mg PO HS 03/07/15 [History Confirmed 07/22/18 Last Taken 11/21/17 20:00] buPROPion [Wellbutrin Xl] 300 mg PO DAILY 03/07/15 [History Confirmed 07/22/18 Last Taken 11/21/17 08:00] Losartan Potassium [Cozaar] 100 mg PO DAILY 08/11/17 [History Confirmed Last Taken 10/29/17] busPIRone [Buspar] 10 mg PO BID 08/11/17 [History Confirmed 07/22/18 Last Taken 10/29/17] clonazePAM [KlonoPIN] 1 mg PO TID 08/11/17 [History Confirmed 07/22/18 Last Taken 10/28/17] acetaminophen-codeine 1 tab PO BID 06/22/18 [History Confirmed 07/22/18 Last Taken Unknown] Warfarin [Coumadin] 5 mg PO DAILY 07/22/18 [History Confirmed 07/23/18 Last Taken Unknown] Calcitriol [Rocaltrol] 0.25 mcg PO DAILY 07/23/18 [History Confirmed 07/23/18 Last Taken Unknown] Ergocalciferol (Vitamin D2) [Vitamin D2] 50,000 unit PO Q2W 07/23/18 [History Confirmed 07/23/18 Last Taken Unknown] Leflunomide [Arava] 20 mg PO DAILY 07/23/18 [History Confirmed 07/23/18 Last Taken Unknown] Nebivolol HCl [Bystolic] 10 mg PO DAILY 07/23/18 [History Confirmed 07/23/18 Last Taken Unknown] Omeprazole [Prilosec] 40 mg PO ACB 07/23/18 [History Confirmed 07/23/18 Last Taken Unknown] Spironolactone [Aldactone] 25 mg PO DAILY 07/23/18 [History Confirmed 07/23/18 Last Taken Unknown] Venlafaxine HCl [Venlafaxine HCl ER] 225 mg PO DAILY 07/23/18 [History Confirmed 07/23/18 Last Taken Unknown] amLODIPine [Norvasc] 5 mg PO DAILY 07/23/18 [History Confirmed 07/23/18 Last Taken Unknown] cefTRIAXone [Rocephin] 2 gm IV Q12H #11 vial 07/24/18 [Rx Last Taken Unknown] Medical - DS: Hosp Hospital course: Ms. Alas is a 58 year old F with history of diabetes who lives by herself. She is on 2 L of oxygen when she sleeps presents to the emergency room today brought in by her caregiver for evaluation of left lower extremity redness. The patient a poor history provider however notes that she started having pain redness and swelling in the left lower extremity since yesterday. She has not been doing well since then. This is associated with fever chills and Reiger's. She also had some nausea and vomiting over the night. Her caregiver who sees her twice a week does not remember having redness or swelling in the lower extremities during the last visit. This was concerning and therefore she was brought to the hospital. The patient has chronic headaches, has some cough and shortness of breath denies any chest pain denies any abdominal pain had some nausea and vomiting as mentioned above, she denies any diarrhea or any urinary complaints. She denies any new joint pains any abnormal skin rashes except for redness on the left lower extremity, she admits to having some anxiety and depression. On presentation in the emergency room she was initially afebrile however later developed a temperature of 102.5, heart rate 72 blood pressure 1 1 6 x 94 saturating around 88-90% on room air with 2 L of oxygen was 96%. Chest x-ray done shows borderline cardiomegaly mild chronic bronchitis EKG was sinus rhythm. Labs show leukocytosis WBC 23,400 hemoglobin 14 platelets 207 lactic acid was 1.2. Sodium 131 potassium 4.1 chloride a 89, bicarbonate 27 creatinine 1.4 baseline around 0.9 glucose 86. Patient has a solitary kidney. Pro calcitonin elevated at 4.16 UA has some mild leukocyte esterase. She was given some fluids blood cultures were sent and started on Rocephin and levofloxacin admitted to the hospital for further management 07/23 Pt seen examined, no acute overnight issues, this AM I was notified of low bp, and low grade fever, pt responded to 1L saline, X ray s? new infiltrate? clinically pt feels better, no new complaints or concerns. Leg still red and cellulitis largely within boundary 07/24 Pt seen examined, no acute overnight issues, tolerating po well labs stable, vital sings stable blood cultures repeat sent today first is Group C step, sensitivity pending, Remains on vanco and rocephin for now. anticipate d/c home tomorrow, if repeat blood culture are negative. 07/25 Feeling better slept well. Leg with decreased tenderness redness swelling. Desiring to go home. stable for d/c. Discharge diagnosis: Left leg cellulitis sepsis bacteremia AK I - Time Spent with Patient Total time spent providing and/or coordinating discharge services: Greater than 30 minutes Medical - DS: Exam - Constitutional Vitals: Vital Signs Temp Pulse Pulse Resp BP Pulse Ox 07/24/18 11:39 98.8 F 74 18 109/70 92 07/24/18 06:44 99.0 F 60 18 116/71 93 07/24/18 04:00 99.2 F H 57 L 16 106/63 96 07/24/18 00:00 98.2 F 60 16 100/58 93 07/23/18 20:40 99.4 F H 58 L 16 99/59 96 07/23/18 19:00 100.3 F H 07/23/18 18:30 101.3 F H 07/23/18 17:15 98.6 F 07/23/18 15:59 100.1 F H 24 H 110/62 93 Intake and Output 07/24/18 07/24/18 07/24/18 05:59 13:59 21:59 Intake Total 600 / 600 550 / 550 Output Total 900 / 900 375 / 375 Balance -300 / -300 -375 / -375 550 / 550 Intake: IV 550 / 550 Vancomycin 1,500 mg In Sodium 500 / 500 Chloride 0.9% 500 ml @ 333.3 mls/hr IV Q24H [facility] Rx#: [id number] Rocephin 2 gm In Dextrose 5% in 50 / 50 Water 50 ml @ 100 mls/hr IV Q24H [facility] Rx#:[id number] Oral 600 / 600 Output: Void Amount 900 / 900 375 / 375 Other: Meal Breakfast Percent of Meal Consumed 50% Urine Appearance Clear Urine Color Straw Urine Odor Normal Stool Size Small Stool Color Brown Stool Consistency Soft Medical - DS: Data Labs on day of discharge: Labs from last 24 hours 07/24/18 07/24/18 07/24/18 04:10 04:10 04:10 WBC 6.2 RBC 3.88 L Hgb 11.4 L Hct 34.1 L MCV 87.8 MCH 29.3 MCHC 33.4 RDW 15.8 H Plt Count 154 MPV 10.3 Gran % 70.2 Lymph % (Auto) 12.8 L [place] % (Auto) 15.0 H Eos % (Auto) 1.5 Baso % (Auto) 0.5 Gran # 4.4 Lymph # (Auto) 0.8 L [place] # (Auto) 0.9 Eos # (Auto) 0.1 Baso # (Auto) 0 PT 32.6 H INR 3.2 H Sodium 138 Potassium 4.3 Chloride 101 Carbon Dioxide 29 Anion Gap 8.0 BUN 16 Creatinine 1.0 GFR Calculation 62 Glucose 69 L Uric Acid 4.3 Calcium 8.5 L Phosphorus 2.4 L Magnesium 2.0 Total Bilirubin 0.3 Direct Bilirubin < 0.2 GGT 33 AST 24 ALT 18 Alkaline Phosphatase 67 Lactate Dehydrogenase 197 Total Protein 5.6 L Albumin 2.8 L Globulin 2.8 Albumin/Globulin Ratio 1.0 Triglycerides 157 H Preliminary micro results at discharge 07/22/18 17:18 Blood Culture - Preliminary Blood 07/22/18 17:17 Blood Culture - Preliminary Blood Gram positive cocci Medical - DS: A/P - Patient/Caregiver Discharge Instructions Activity: increase activity as tolerated Diet: Consistent Carbohydrate Additional Instructions: PICC line care and DC when antibiotic course finishes. CBC/CMP in 1 week since patient is on IV antibiotics Prescriptions: cefTRIAXone [Rocephin] 2 gm IV Q12H #11 vial - Follow up Plan Follow up with: Li Ritter MD [Primary Care Provider] - Disposition: Home, Self-Care Prognosis: Fair Rehab Potential: Fair Medical - DS: Qual - VTE Deep Vein Thrombosis/Pulmonary Embolism Present on Admission: No
[2018-07-24] MEDS: ATORVASTATIN 20 MG TABLET PO SCH (20:04)
[2018-07-25] MEDS: IPRATROPIUM/ALBUTEROL 3 ML AMPUL.NEB NEB SCH ×2 (04:17→14:52)
[2018-07-25] MEDS: 0.9 % SODIUM CHLORIDE 10 ML SYRINGE IV SCH (04:18)
[2018-07-25] MEDS: ACETAMINOPHEN 325 MG TABLET PO PRN ×2 (04:22→11:17)
[2018-07-25] MEDS: oxyCODONE HCL 5 MG TABLET PO PRN ×2 (04:22→11:18)
[2018-07-25 06:05] LABS: Basophils # (Auto) 0 K/mcL (0.0-0.3); Basophils % (Auto) 0.6 % (0.0-2.0); Eosinophils # (Auto) 0.2 K/mcL (0.0-0.7); Eosinophils % (Auto) 2.8 % (0.0-7.0); Granulocytes % (Auto) 55.5 % (38.0-78.0); Lymphocytes # (Auto) 1.5 K/mcL (1.5-4.8); Lymphocytes % (Auto) 23.5 % (15.5-49.0); Mean Cell Volume 87.6 fL (80.0-100.0); Mean Corpuscular HGB Conc 33.5 g/dL (31.0-36.0); Mean Corpuscular Hemoglobin 29.4 pg (26.0-34.0); Monocytes # (Auto) 1.1 K/mcL (0.1-0.9); Monocytes % (Auto) 17.6 % (1.0-12.0); Platelet Count 178 K/mcL (140-440); RBC 4.02 M/mcL (4.00-5.20); Red Cell Distribution Width 15.9 % (11.5-14.5)
[2018-07-25 06:35] LABS: ALT/SGPT 19 U/l (0-40); Albumin 3.2 gm/dL (3.2-5.2); Albumin/Globulin Ratio 1.1 (1.0-2.3); Alkaline Phosphatase 69 U/L (39-117); Bilirubin,Direct < 0.2 mg/dL (0.0-0.3); Blood Urea Nitrogen 16 mg/dl (6-20); Gamma Glutamyl Transpeptidase 35 U/L (5-36); Uric Acid 4.1 mg/dL (2.5-8.0)
--- NOTE | 2018-07-25 07:39 | Internal Med Progress Note ---
Medical - PN: Subj Patient information: Note initiated : 07/25/18 at 7:35 am Service Date, if different from initiated Date: [] Patient: Shiela Alas a 58 y/o F admitted on 07/22/18 for Cold symptoms. Chief Complaint: [] Interval history: Ms. Alas is a 58 year old F with history of diabetes who lives by herself. She is on 2 L of oxygen when she sleeps presents to the emergency room today brought in by her caregiver for evaluation of left lower extremity redness. The patient a poor history provider however notes that she started having pain redness and swelling in the left lower extremity since yesterday. She has not been doing well since then. This is associated with fever chills and Reiger's. She also had some nausea and vomiting over the night. Her caregiver who sees her twice a week does not remember having redness or swelling in the lower extremities during the last visit. This was concerning and therefore she was brought to the hospital. The patient has chronic headaches, has some cough and shortness of breath denies any chest pain denies any abdominal pain had some nausea and vomiting as mentioned above, she denies any diarrhea or any urinary complaints. She denies any new joint pains any abnormal skin rashes except for redness on the left lower extremity, she admits to having some anxiety and depression. On presentation in the emergency room she was initially afebrile however later developed a temperature of 102.5, heart rate 72 blood pressure 1 1 6 x 94 saturating around 88-90% on room air with 2 L of oxygen was 96%. Chest x-ray done shows borderline cardiomegaly mild chronic bronchitis EKG was sinus rhythm. Labs show leukocytosis WBC 23,400 hemoglobin 14 platelets 207 lactic acid was 1.2. Sodium 131 potassium 4.1 chloride a 89, bicarbonate 27 creatinine 1.4 baseline around 0.9 glucose 86. Patient has a solitary kidney. Pro calcitonin elevated at 4.16 UA has some mild leukocyte esterase. She was given some fluids blood cultures were sent and started on Rocephin and levofloxacin admitted to the hospital for further management 07/23 Pt seen examined, no acute overnight issues, this AM I was notified of low bp, and low grade fever, pt responded to 1L saline, X ray s? new infiltrate? clinically pt feels better, no new complaints or concerns. Leg still red and cellulitis largely within boundary 07/24 Pt seen examined, no acute overnight issues, tolerating po well labs stable, vital sings stable blood cultures repeat sent today first is Group C step, sensitivity pending, Remains on vanco and rocephin for now. anticipate d/c home tomorrow, if repeat blood culture are negative. 07/25 Feeling better slept well. Leg with decreased tenderness redness swelling. Review of Systems: denies headache/fever/chills/nausea/vomiting/chest or abdominal pain/cough/ dyspnea/diarrhea. Otherwise see above. - Constitutional Vitals: Vital Signs Temp Pulse Resp BP Pulse Ox 98.6 F 57 L 16 115/73 94 07/25/18 04:00 07/25/18 04:00 07/25/18 04:00 07/25/18 04:00 07/25/18 04:00 Period Temp Pulse Resp BP Sys/Bui Pulse Ox Last 24 Hr 98.1 F-99.2 F 55-74 14-18 109-115/64-73 92-96 Intake and Output 07/24/18 07/25/18 07/25/18 21:59 05:59 13:59 Intake Total 670 / 670 650 / 650 Output Total 800 / 800 650 / 650 Balance -130 / -130 0 / 0 Weight 97.069 kg Intake & Output: Intake & Output 07/24/18 07/25/18 07/25/18 21:59 05:59 13:59 Intake Total 670 / 670 650 / 650 Output Total 800 / 800 650 / 650 Balance -130 / -130 0 / 0 Weight 97.069 kg Intake: IV 550 / 550 Vancomycin 1,500 mg In Sodium 500 / 500 Chloride 0.9% 500 ml @ 333.3 mls/hr IV Q24H [facility] Rx#: [id number] Rocephin 2 gm In Dextrose 5% in 50 / 50 Water 50 ml @ 100 mls/hr IV Q24H [facility] Rx#:[id number] Oral 120 / 120 650 / 650 Output: Void Amount 800 / 800 650 / 650 Other: Meal Dinner Percent of Meal Consumed 75% Feeding Ability Independent Urine Appearance Clear Clear Urine Color Straw Straw Urine Odor Normal Normal Exam: General: Alert, Awake, No acute Distress Eyes/N/T: EOMI, Head/Neck: neck supple, CV: RRR, No murmurs, normal s1/s2 Pulm: Clear b/l, no wheezing/rhonchi/rales Abd: soft, nontender, +BS x4 Ext: LLE with erythema/tenderness/warmth Neuro: Alert, no focal deficits, moves all extremities Skin: warm/dry Medical - PN: Obj Da - Labs CBC & Chem 7: 07/25/18 04:20 07/25/18 04:20 Labs: Abnormal Lab Results 07/25/18 07/25/18 07/25/18 04:20 04:20 04:20 WBC RBC Hgb 11.8 L Hct 35.2 L RDW 15.9 H MPV Gran % Lymph % (Auto) [place] % (Auto) 17.6 H Gran # Lymph # (Auto) [place] # (Auto) 1.1 H PT 17.0 H INR 1.4 H Sodium Chloride BUN Creatinine Glucose 67 L Calcium Phosphorus Magnesium Total Protein Albumin Albumin/Globulin Ratio Triglycerides 163 H Urine Occult Blood Ur Leukocyte Esterase Urine WBC Urine Bacteria 07/24/18 07/24/18 07/24/18 04:10 04:10 04:10 WBC RBC 3.88 L Hgb 11.4 L Hct 34.1 L RDW 15.8 H MPV Gran % Lymph % (Auto) 12.8 L [place] % (Auto) 15.0 H Gran # Lymph # (Auto) 0.8 L [place] # (Auto) PT 32.6 H INR 3.2 H Sodium Chloride BUN Creatinine Glucose 69 L Calcium 8.5 L Phosphorus 2.4 L Magnesium Total Protein 5.6 L Albumin 2.8 L Albumin/Globulin Ratio Triglycerides 157 H Urine Occult Blood Ur Leukocyte Esterase Urine WBC Urine Bacteria 07/23/18 07/23/18 07/23/18 04:30 04:30 04:30 WBC 13.4 H RBC 3.81 L Hgb 11.2 L Hct 33.6 L RDW 15.8 H MPV 10.5 H Gran % 89.0 H Lymph % (Auto) 4.6 L [place] % (Auto) Gran # 11.9 H Lymph # (Auto) 0.6 L [place] # (Auto) PT 48.0 H INR 5.4 H Sodium Chloride BUN 21 H Creatinine Glucose 67 L Calcium 8.0 L Phosphorus 2.3 L Magnesium 1.3 L Total Protein 5.4 L Albumin 2.6 L Albumin/Globulin Ratio 0.9 L Triglycerides Urine Occult Blood Ur Leukocyte Esterase Urine WBC Urine Bacteria 07/22/18 07/22/18 07/22/18 18:21 17:18 17:17 WBC 23.4 H RBC Hgb Hct RDW 15.4 H MPV 10.8 H Gran % 91.9 H Lymph % (Auto) 2.4 L [place] % (Auto) Gran # 21.5 H Lymph # (Auto) 0.6 L [place] # (Auto) 1.1 H PT INR Sodium 131 L Chloride 89 L BUN 27 H Creatinine 1.4 H Glucose Calcium Phosphorus Magnesium Total Protein Albumin Albumin/Globulin Ratio Triglycerides Urine Occult Blood 0.03 A Ur Leukocyte Esterase 25 A Urine WBC 5 H Urine Bacteria Few A Meds: Medications Acetaminophen (Tylenol) 650 mg PO Q6HP PRN PRN Reason: PAIN/FEVER > 101 Last Admin: 07/25/18 04:22 Dose: 650 mg Albuterol Sulfate (Ventolin) 2.5 mg NEB Q2HP PRN PRN Reason: Shortness Of Breath Albuterol/Ipratropium (Duoneb) 3 ml NEB Q6HRT [facility] Last Admin: 07/25/18 04:17 Dose: Not Given Atorvastatin Calcium (Lipitor) 20 mg PO HS [facility] Last Admin: 07/24/18 20:04 Dose: 20 mg Beclomethasone Dipropionate (Qvar 40) 1 puff INH BID [facility] Last Admin: 07/24/18 20:09 Dose: Not Given Bupropion HCl (Wellbutrin Xl) 300 mg PO DAILY [facility] Last Admin: 07/24/18 08:55 Dose: 300 mg Buspirone HCl (Buspar) 10 mg PO BID [facility] Last Admin: 07/24/18 20:04 Dose: 10 mg Calcitriol (Rocaltrol) 0.25 mcg PO DAILY [facility] Last Admin: 07/24/18 08:56 Dose: 0.25 mcg Clonazepam (Klonopin) 1 mg PO TID [facility] Last Admin: 07/24/18 20:04 Dose: 1 mg Dextrose (Dextrose 50%) 0 ml IV UD PRN PRN Reason: Hypoglycemia Diagnostic Test (Pha) (Accu-Chek) 1 each FS ACHS [facility] Last Admin: 07/24/18 20:07 Dose: 1 each Docusate Sodium (Colace) 100 mg PO BID [facility] Last Admin: 07/24/18 20:08 Dose: Not Given Ergocalciferol (Drisdol) 50,000 unit PO Q2W [facility] Glucose (Insta-Glucose) 15 gm PO PRN PRN PRN Reason: Hypoglycemia Hydromorphone HCl (Dilaudid) 0.5 mg IV Q2HP PRN PRN Reason: PAIN LEVEL > 6 Ceftriaxone Sodium 2 gm/ (Dextrose) 50 mls @ 100 mls/hr IV Q24H [facility] Last Infusion: 07/24/18 15:22 Dose: Infused Vancomycin HCl 1,500 mg/ (Sodium Chloride) 500 mls @ 333.3 mls/hr IV Q24H [facility] Last Infusion: 07/24/18 15:22 Dose: Infused Insulin Human Lispro (Humalog) 0 unit SQ ACHS [facility]; Protocol Last Admin: 07/24/18 20:08 Dose: Not Given Leflunomide (Arava) 20 mg PO DAILY [facility] Last Admin: 07/24/18 08:56 Dose: Not Given Naloxone HCl (Narcan) 0.1 mg IV Q2MIN PRN PRN Reason: Opiate Reversal Omeprazole (Prilosec) 40 mg PO ACB [facility] Last Admin: 07/24/18 08:54 Dose: 40 mg Ondansetron HCl (Zofran) 4 mg IV Q6HP PRN PRN Reason: Nausea And Vomiting Oxycodone HCl (Roxicodone) 5 mg PO Q4HP PRN PRN Reason: PAIN LEVEL 3-6 Last Admin: 07/25/18 04:22 Dose: 5 mg Pregabalin (Lyrica) 300 mg PO BID [facility] Last Admin: 07/24/18 20:04 Dose: 300 mg Sodium Chloride (Saline Flush) 10 ml IV Q8 [facility] Last Admin: 07/25/18 04:18 Dose: 10 ml Tiotropium [place] (Spiriva) 18 mcg INH DAILY [facility] Last Admin: 07/24/18 08:57 Dose: Not Given Trazodone HCl (Desyrel) 50 mg PO HSP PRN PRN Reason: Insomnia Vancomycin HCl (Vancomycin Per Pharmacy) 1 order IV [facility] Venlafaxine HCl (Effexor Xr) 225 mg PO DAILY [facility] Last Admin: 07/24/18 08:55 Dose: 225 mg Warfarin Sodium (Coumadin Per Pharmacy) 1 order PO [facility] Medical - PN: A/P - Time Spent With Patient Total time spent is greater than 50% in coordination of care (as documented) at patient's floor/unit and/or counseling patient: - Narrative A/P Narrative: A/P *Cellulitis Left lower extremity: 2/2 to strep group C -no h/o reported trauma, on vanco and Rochepin, *Streptococcus group C bacteremia: Sensitivities returned and will DC Vanco continue Rocephin -repeat blood cultures no growth thus far -will need 14 days of IV Abx, place PICC as repeat BC neg -d/c vanco *Sepsis: resolved *Acute Kidney injury: Creat improved *HTN: BP ok w/o home meds (norvasc, losartan) *DM: insulin ssi for now *Atrial fibrillation chronic: rate controlled, not on amiodarone as per last med reconciliation, d/c same. continue to dose coumadin per pharmacy. *COPD (on 2L oxygen): no wheeze on exam, duonebs q6hrs for now, inhaled CS . *Hyponatremia/mag: resolved *ppx: Coumadin per pharm DNR code status Medical - PN: Qual - VTE Deep Vein Thrombosis/Pulmonary Embolism Present on Admission: No
[2018-07-25] MEDS: INSULIN LISPRO 1 UNIT/0.01 ML UNIT SQ SCH ×2 (07:49→12:17)
[2018-07-25] MEDS ORDERED: ERGOCALCIFEROL (VITAMIN D2) 50,000 UNIT CAPSULE PO SCH (09:00)
[2018-07-25] MEDS: buPROPion 150 MG TAB.XL.24H PO SCH (10:05)
[2018-07-25] MEDS: OMEPRAZOLE 20 MG CAPSULE PO SCH (10:05)
[2018-07-25] MEDS: VENLAFAXINE 75 MG CAP.XL.24H PO SCH (10:05)
[2018-07-25] MEDS: clonazePAM 0.5 MG TABLET PO SCH ×2 (10:06→15:16)
[2018-07-25] MEDS: PREGABALIN 150 MG CAPSULE PO SCH (10:06)
[2018-07-25] MEDS: busPIRone 5 MG TABLET PO SCH (10:06)
[2018-07-25] MEDS: CALCITRIOL 0.25 MCG CAPSULE PO SCH (10:06)
[2018-07-25] MEDS: LEFLUNOMIDE 20 MG TABLET PO SCH (10:07)
[2018-07-25] MEDS: BECLOMETHASONE DIPROPIONATE 40MCG INHALER INH SCH (10:07)
[2018-07-25] MEDS: cefTRIAXone 2 GM in DEXTROSE 5% IN WATER 50 ML IV SCH (10:07)
[2018-07-25] MEDS: DOCUSATE SODIUM 100 MG CAPSULE PO SCH (10:07)
[2018-07-25] MEDS: TIOTROPIUM BROMIDE 18 MCG INHALANT INH SCH (10:08)
[2018-07-25] MEDS: VANCOMYCIN 1,500 MG in 0.9 % SODIUM CHLORIDE 500 ML IV SCH (10:51)
--- NOTE | 2018-07-25 14:35 | XRay Report ---
INDICATION: PICC line placement TECHNIQUE: AP chest x-ray, portable semiupright COMPARISON: Previous examination dated 07/23/2018 FINDINGS: Left-sided PICC line with its tip in the distal superior vena cava, just proximal to the right atrium. This is in good position. No new focal pulmonary parenchymal infiltrate or mass. Heart size and vascularity are unremarkable. IMPRESSION: Left-sided PICC line with its tip in the distal superior vena cava. Interpreted and Authenticated by: Jose Weinberg 07/25/18
== END 2018-07-25 16:20 | disposition home or self-care (01) | DRG 872 ==
LOC: ED 16:44 → MEDSUR 21:49
PROVIDERS: ADMIT Internal Medicine; ATTEND Internal Medicine
CPT/HCPCS: 84145; 87149; 97161; 97167; A4221; C1751; J0696; J1644; J2405; J3370; J3475; J7040; J7050; J7060; J7120; J7620; J7620-GY

== ENCOUNTER 2018-12-19 10:50 | Observation (INO) ==
[2018-12-19] MEDS ORDERED: EPINEPHrine 1 MG/ML AMPUL IM ONE (10:56)
[2018-12-19] MEDS ORDERED: diphenhydrAMINE 50 MG/ML VIAL IV ONE (10:56)
[2018-12-19] MEDS ORDERED: methylPREDNISolone SOD SUCC 125 MG/2 ML VIAL IV ONE (10:56)
--- NOTE | 2018-12-19 10:57 | Emergency Department Note ---
Allergic Reaction HPI - General Chief complaint: Allergic Reaction Stated complaint: Allergic Reaction Time Seen by Provider: 12/19/18 10:54 Source: patient Mode of arrival: wheelchair Limitations: no limitations - History of Present Illness HPI Narrative: Patient was stung by bee on the left hand approximately 10 minutes ago came straight to the ED. 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 She states that she is having some difficulty breathing some tightness in her throat which is her normal reactions. she has no flushing no urticaria noted. She does have some wheezing heard. She is a smoker.Temperature is 98 to the pulse is 56 the respirations are 16 blood pressure 103/88 pulse ox initially 91% rates the pain in her and is an 8/10. Care provider states that she uses home O2 - Related Data Home Medications Medication Instructions Recorded Confirmed Bumetanide 2 mg PO QDAY 03/07/15 11/22/18 Pregabalin [Lyrica] 300 mg PO BID 03/07/15 11/22/18 Rosuvastatin [Crestor] 10 mg PO HS 03/07/15 11/22/18 buPROPion [Wellbutrin Xl] 300 mg PO DAILY 03/07/15 11/22/18 Losartan Potassium [Cozaar] 100 mg PO DAILY 08/11/17 11/22/18 busPIRone [Buspar] 10 mg PO BID 08/11/17 11/22/18 clonazePAM [KlonoPIN] 1 mg PO TID 08/11/17 11/22/18 acetaminophen-codeine 1 tab PO BID 06/22/18 11/22/18 Warfarin [Coumadin] 5 mg PO DAILY 07/22/18 11/22/18 Calcitriol [Rocaltrol] 0.25 mcg PO DAILY 07/23/18 11/22/18 Ergocalciferol (Vitamin D2) 50,000 unit PO Q2W 07/23/18 11/22/18 [Vitamin D2] Leflunomide [Arava] 20 mg PO DAILY 07/23/18 11/22/18 Nebivolol HCl [Bystolic] 10 mg PO DAILY 07/23/18 11/22/18 Omeprazole [Prilosec] 40 mg PO ACB 07/23/18 11/22/18 Spironolactone [Aldactone] 25 mg PO DAILY 07/23/18 11/22/18 Venlafaxine HCl [Venlafaxine HCl 225 mg PO DAILY 07/23/18 11/22/18 ER] amLODIPine [Norvasc] 5 mg PO DAILY 07/23/18 11/22/18 Allergies Allergy/AdvReac Type Severity Reaction Status Date / Time Sulfa (Sulfonamide Allergy Intermediate Itching Verified 12/19/18 10:55 Antibiotics) quetiapine Allergy Unknown Unknown Verified 12/19/18 10:55 Iodinated Contrast- Oral and AdvReac Severe Itching Verified 12/19/18 10:55 IV Dye [Iodinated Contrast Media - IV Dye] iodine AdvReac Severe Itching Verified 12/19/18 10:55 methadone [Methadone] AdvReac Severe Confusion Verified 12/19/18 10:55 Adhesive Tape Allergy Unknown Unknown Uncoded 11/22/18 13:43 Bee Stings Allergy Unknown Unknown Uncoded 11/22/18 13:43 Sun Allergy Unknown Unknown Uncoded 11/22/18 13:43 Review of Systems All systems ED: reviewed and negative except as stated. Constitutional: Denies: fever, chills ENT ED: Reports: as per HPI, other (Complain of some tightness in her throat) Respiratory: Reports: wheezes Gastrointestinal: Denies: abdominal pain, nausea, vomiting Genitourinary: Denies: dysuria, urgency Past Medical History - Past Medical History Medical history: Reports: asthma, cancer (Renal cell carcinoma. Malignant lymphoma.), CHF, DM (Type II), GERD, hyperlipidemia, obesity, peripheral artery disease, renal disease, other (Cellulitis/abscess of the foot. Fatigue. Recurrent upper respiratory infections. Frequent urinary tract infections. Hyperparathyroidism. Hypertensive renal disease, CKD stage III. Vitamin D deficiency. Ventricular hypertrophy. Tremors. Obst sleep apnea. Sepsis. Respiratory failure. Peripheral neuropathy. IBS. Gait abnormality. Chronic edema. Back pain. Atrial enlargement. 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 Denies 11-19-17) Drug use: Reports: marijuana Physical Exam Limitations: no limitations General appearance: alert Head: atraumatic, normocephalic Eye: Present: normal appearance, PERRL ENT: normal exam, normal oropharynx, mucous membranes moist, hoarse voice Neck: Present: normal inspection, full ROM, trachea midline Chest: Present: normal inspection, symmetric chest wall rise. Absent: tenderness Respiratory: Present: normal lung sounds bilaterally, wheezes. Absent: respiratory distress, rales/crackles Cardiovascular: Present: regular rate, normal rhythm Abdominal: Present: soft, normal bowel sounds. Absent: distention, tenderness, guarding, rebound, rigidity Back: Present: normal inspection, full ROM. Absent: tenderness Neurological: Present: alert, oriented X3, CN II-XII intact Psychiatric: Present: normal affect, normal mood. Absent: depressed, agitated, anxious Skin: Present: warm, cool Course Vital Signs Temperature 98.2 F 12/19/18 10:51 Pulse Rate 56 L 12/19/18 10:51 Respiratory Rate 16 12/19/18 10:51 Blood Pressure 103/88 12/19/18 10:51 Pulse Oximetry (%) 91 12/19/18 10:51 Temperature 98.2 F 12/19/18 10:51 Pulse Rate 57 L 12/19/18 14:31 Respiratory Rate 15 12/19/18 14:38 Blood Pressure 94/58 12/19/18 14:31 Pulse Oximetry (%) 93 12/19/18 14:31 Allergic Reaction - MDM Narrative Medical decision making narrative: Her tightening in her throat has resolved with the epinephrine Benadryl and Solu-Medrol. We did give her DuoNeb as she does have severe COPD provider states she uses home O2 especially at nighttime. She is wheezing she states she is been wheezing for many days not used her albuterol inhaler that she was given which has cleared the wheezing patient blood pressure remain in the 90s her O2 sats in the high 80s without oxygen she does remain in 90 to 93% with O2. Dr. Espino contacted and here to evaluate patient to be admitted - Lab Data Result diagrams: 12/19/18 13:06 Lab Results 12/19/18 12/19/18 12/19/18 Range/Units 13:06 13:06 13:06 WBC 8.9 (4.5-11.0) K/mcL RBC 4.34 (4.00-5.20) M/mcL Hgb 12.0 (12.0-15.0) g/dL Hct 36.5 (36.0-48.0) % POC Hct 35.0 L (36.0-48.0) % MCV 84.1 (80.0-100.0) fL MCH 27.7 (26.0-34.0) pg MCHC 32.9 (31.0-36.0) g/dL RDW 17.0 H (11.5-14.5) % Plt Count 206 (140-440) K/mcL MPV 9.9 (7.4-10.4) fL Gran % 85.2 H (38.0-78.0) % Lymph % (Auto) 7.3 L (15.5-49.0) % Rabun % (Auto) 5.2 (1.0-12.0) % Eos % (Auto) 1.8 (0.0-7.0) % Baso % (Auto) 0.5 (0.0-2.0) % Gran # 7.6 (1.8-8.0) K/mcL Lymph # (Auto) 0.6 L (1.5-4.8) K/mcL Rabun # (Auto) 0.5 (0.1-0.9) K/mcL Eos # (Auto) 0.2 (0.0-0.7) K/mcL Baso # (Auto) 0 (0.0-0.3) K/mcL D-Dimer (0.00-0.40) ug/ml VBG Lactic Acid 0.8 (0.5-2.0) mmol/L POC Sodium 139 (133-145) mmol/L POC Potassium 4.5 (3.3-5.1) mmol/L POC Chloride 101 (96-108) mmol/L POC Total CO2 29 (22-30) mmol/L POC BUN 42 H (6-20) mg/dl POC Creatinine 1.8 H (0.6-1.1) mg/dl POC Glucose 106 H (70-105) mg/dL POC WB Ioniz Calcium 0.91 L (1.16-1.32) mmol/L 12/19/18 Range/Units 13:06 WBC (4.5-11.0) K/mcL RBC (4.00-5.20) M/mcL Hgb (12.0-15.0) g/dL Hct (36.0-48.0) % POC Hct (36.0-48.0) % MCV (80.0-100.0) fL MCH (26.0-34.0) pg MCHC (31.0-36.0) g/dL RDW (11.5-14.5) % Plt Count (140-440) K/mcL MPV (7.4-10.4) fL Gran % (38.0-78.0) % Lymph % (Auto) (15.5-49.0) % Rabun % (Auto) (1.0-12.0) % Eos % (Auto) (0.0-7.0) % Baso % (Auto) (0.0-2.0) % Gran # (1.8-8.0) K/mcL Lymph # (Auto) (1.5-4.8) K/mcL Rabun # (Auto) (0.1-0.9) K/mcL Eos # (Auto) (0.0-0.7) K/mcL Baso # (Auto) (0.0-0.3) K/mcL D-Dimer 0.58 H (0.00-0.40) ug/ml VBG Lactic Acid (0.5-2.0) mmol/L POC Sodium (133-145) mmol/L POC Potassium (3.3-5.1) mmol/L POC Chloride (96-108) mmol/L POC Total CO2 (22-30) mmol/L POC BUN (6-20) mg/dl POC Creatinine (0.6-1.1) mg/dl POC Glucose (70-105) mg/dL POC WB Ioniz Calcium (1.16-1.32) mmol/L Disposition Pt seen by CUSTOMER AGENT/PA only: No Clinical Impression: Allergic reaction to bee sting, Hypotension Disposition: Xfer As Inpt ([facility]) Referrals: Li Ritter MD [Primary Care Provider] -
[2018-12-19] MEDS ORDERED: 0.9 % SODIUM CHLORIDE 1,000 ML IV ONE ×2 (11:43→13:13)
[2018-12-19] MEDS ORDERED: IPRATROPIUM/ALBUTEROL 3 ML AMPUL.NEB NEB ONE (11:43)
--- NOTE | 2018-12-19 13:13 | XRay Report ---
CLINICAL INFORMATION: CHEST PAIN COMPARISON: 07/25/2018 FINDINGS: Heart is at the upper limits of normal in size. Mediastinum and pulmonary vessels are unremarkable. Mild bibasilar atelectasis noted. No effusions. Bones and soft tissues normal IMPRESSION: Minor bibasilar atelectasis Interpreted and Authenticated by: Jose Xiao 12/19/18
[2018-12-19 13:43] LABS: Basophils # (Auto) 0 K/mcL (0.0-0.3); Basophils % (Auto) 0.5 % (0.0-2.0); Eosinophils # (Auto) 0.2 K/mcL (0.0-0.7); Eosinophils % (Auto) 1.8 % (0.0-7.0); Granulocytes % (Auto) 85.2 % (38.0-78.0); Lymphocytes # (Auto) 0.6 K/mcL (1.5-4.8); Lymphocytes % (Auto) 7.3 % (15.5-49.0); Mean Cell Volume 84.1 fL (80.0-100.0); Mean Corpuscular HGB Conc 32.9 g/dL (31.0-36.0); Monocytes # (Auto) 0.5 K/mcL (0.1-0.9); Monocytes % (Auto) 5.2 % (1.0-12.0); Platelet Count 206 K/mcL (140-440); RBC 4.34 M/mcL (4.00-5.20)
--- NOTE | 2018-12-19 16:06 | Internal Med History&Physical ---
Medical - H&P: HPI Patient information: Note initiated : 12/19/18 at 4:04 pm Service Date, if different from initiated Date: [] Patient: Shiela Alas a 58 y/o F admitted on for Allergic Reaction. Chief Complaint: [] History of present illness: Ms. Alas is a 58 year old F with history of COPD obesity presents to the emergency room after a bee sting. She has a very severe allergic reaction to bee sting does have an EpiPen but since she lives very close by she decided to come to the emergency room instead. She was short of breath hypoxic on presentation. She was also wheezing. She did get EpiPen DuoNeb Benadryl and Solu-Medrol. The patient responded to treatment very well. However in the emergency room patient was noted to remain persistently hypoxic with oxygen saturation around 87% on room air, she also had borderline low blood pressure. She therefore was presented to the hospital for admission. Pt was accompanied by her child care team lead. The patient admits to having some cough and shortness of breath and dizziness but otherwise no symptoms. Feels sleepy and groggy. She denies any headache changes in vision any acute fever chills abdominal pain chest pain nausea vomiting diarrhea any new joint pain new skin rashes or any other acute concerns. In the emergency room patient is hemodynamically stable afebrile heart rate 55 blood pressure 103/88 saturating 94% on 2 L of oxygen. Chest x-ray shows bibasilar atelectasis ABG shows pH of 7.35 PCO2 53 p.o. 2 is 45 not sure of arterial or venous Patient does use oxygen at night 2 L. Patient is being admitted to the hospital for further managed All systems: reviewed and no additional remarkable complaints except as stated (as per HPI rest negative) Medical - H&P: PMH Medical history: Medical History (Last Reviewed 05/24/18 @ 13:28 by Kasandra Reardon CMA) Encounter for long-term (current) use of high-risk medication (Acute) Rheumatoid arthritis (Acute) Polyarthralgia (Acute) Epigastric abdominal pain (Chronic) Macular degeneration (Chronic) External otitis of left ear (Chronic) Pyoderma (Chronic) Anxiety and depression (Chronic) History of Coumadin therapy (Chronic) CVA (cerebral vascular accident) (Chronic) Chronic back pain (Chronic) Arthralgia (Chronic) Osteoporosis (Chronic) Elevated C-reactive protein (CRP) (Chronic) Elevated erythrocyte sedimentation rate (Chronic) CHICHO positive (Chronic) Stenosis, cervical spine (Chronic) Idiopathic osteoarthritis (Chronic) Chronic diastolic heart failure (Chronic) Sicca syndrome (Chronic) Atrial fibrillation (Chronic) Onychomycosis of toenail (Chronic) Mass of skin of right foot (Chronic) Callus of foot (Chronic) Skin fissure (Chronic) Calcaneal spur of both feet (Chronic) Arthritis of both feet (Chronic) Hammertoe (Chronic) Hallux valgus with bunions (Chronic) Ankle joint contracture (Chronic) Plantar fasciitis, right (Chronic) Other dislocation of right foot, subsequent encounter (Chronic) Metatarsalgia, right foot (Chronic) Skin ulcer (Chronic) Peripheral vascular disease (Chronic) Neuropathic pain of ankle (Chronic) Diabetic ulcer of left foot (Chronic) Diabetic ulcer of right foot (Chronic) Cellulitis and abscess of foot (Chronic) Fatigue (Chronic) URI (upper respiratory infection) (Chronic) Cough (Chronic) Diarrhea (Chronic) Ankle sprain and strain (Chronic) Urinary tract infection (Chronic) Urinary tract infection (Chronic) Secondary renal hyperparathyroidism (Chronic) Hypertensive renal disease (Chronic) CKD (chronic kidney disease), stage III (Chronic) Dressing change or removal, surgical wound (Chronic) History of hysterectomy (Chronic) History of chemotherapy (Chronic) Vitamin D deficiency (Chronic) Ventricular hypertrophy (Chronic) Tremor (Chronic) Sleep apnea (Chronic) Sepsis (Chronic) Respiratory failure, acute (Chronic) Renal cell carcinoma (Chronic) Peripheral neuropathy (Acute) Onychomycosis (Chronic) Malignant lymphoma (Chronic) IBS (irritable bowel syndrome) (Chronic) Hyperlipidemia (Chronic) GERD (gastroesophageal reflux disease) (Chronic) Gait abnormality (Chronic) Edema (Chronic) Diabetes mellitus type 2 with complications (Chronic) Situational depression (Chronic) CHF (congestive heart failure) (Chronic) Back pain (Chronic) Atrial enlargement, left (Chronic) Asthma (Chronic) Surgical history: Past Surgical History (Last Reviewed 05/24/18 @ 13:28 by Kasandra Reardon CMA) History of trigger finger (Chronic) History of tonsillectomy (Chronic) Status post peripherally inserted central catheter (PICC) central line placement (Chronic) History of nephrectomy (Chronic) History of left knee replacement (Chronic) History of kidney surgery (Chronic) History of eye surgery (Chronic) History of colonoscopy (Chronic) History of adenoidectomy (Chronic) Family history: reviewed and not pertinent Medical - H&P: Meds Home Medications Medication Instructions Recorded Confirmed Type Bumetanide 2 mg PO QDAY 03/07/15 11/22/18 History Pregabalin [Lyrica] 300 mg PO BID 03/07/15 11/22/18 History Rosuvastatin [Crestor] 10 mg PO HS 03/07/15 11/22/18 History buPROPion [Wellbutrin Xl] 300 mg PO DAILY 03/07/15 11/22/18 History Losartan Potassium [Cozaar] 100 mg PO DAILY 08/11/17 11/22/18 History busPIRone [Buspar] 10 mg PO BID 08/11/17 11/22/18 History clonazePAM [KlonoPIN] 1 mg PO TID 08/11/17 11/22/18 History acetaminophen-codeine 1 tab PO BID 06/22/18 11/22/18 History Warfarin [Coumadin] 5 mg PO DAILY 07/22/18 11/22/18 History Calcitriol [Rocaltrol] 0.25 mcg PO DAILY 07/23/18 11/22/18 History Ergocalciferol (Vitamin D2) 50,000 unit PO Q2W 07/23/18 11/22/18 History [Vitamin D2] Leflunomide [Arava] 20 mg PO DAILY 07/23/18 11/22/18 History Nebivolol HCl [Bystolic] 10 mg PO DAILY 07/23/18 11/22/18 History Omeprazole [Prilosec] 40 mg PO ACB 07/23/18 11/22/18 History Spironolactone [Aldactone] 25 mg PO DAILY 07/23/18 11/22/18 History Venlafaxine HCl [Venlafaxine HCl 225 mg PO DAILY 07/23/18 11/22/18 History ER] amLODIPine [Norvasc] 5 mg PO DAILY 07/23/18 11/22/18 History Allergies Allergy/AdvReac Type Severity Reaction Status Date / Time Sulfa (Sulfonamide Allergy Intermediate Itching Verified 12/19/18 10:55 Antibiotics) quetiapine Allergy Unknown Unknown Verified 12/19/18 10:55 Iodinated Contrast- Oral and AdvReac Severe Itching Verified 12/19/18 10:55 IV Dye [Iodinated Contrast Media - IV Dye] iodine AdvReac Severe Itching Verified 12/19/18 10:55 methadone [Methadone] AdvReac Severe Confusion Verified 12/19/18 10:55 Adhesive Tape Allergy Unknown Unknown Uncoded 11/22/18 13:43 Bee Stings Allergy Unknown Unknown Uncoded 11/22/18 13:43 Sun Allergy Unknown Unknown Uncoded 11/22/18 13:43 Medical - H&P: Exam - Constitutional Vitals: Temp Pulse Resp BP Pulse Ox 98.2 F 57 L 15 94/58 93 12/19/18 10:51 12/19/18 14:31 12/19/18 14:38 12/19/18 14:31 12/19/18 14:31 Exam: Constitutional; Afebrile, cooperative, a bit groggy, not in distress. Eyes- No icterus, , No periorbital swelling Ears- Ext ear normal, hearing normal to conversation. Neck- Midline trachea, supple Respiratory system: Air Entry equal on both sides, No crackles, prolonged exp phase. CVS- Rate rhythm regular, S1,S2 heard, no gallop, no rub. 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 Medical - H&P: Reslt - Labs CBC & Chem 7: 12/19/18 13:06 Labs: Short CBC 12/19/18 Range/Units 13:06 WBC 8.9 (4.5-11.0) K/mcL Hgb 12.0 (12.0-15.0) g/dL Hct 36.5 (36.0-48.0) % Plt Count 206 (140-440) K/mcL Medical - H&P: A/P - Narrative A/P Narrative: A/P Bee Sting -s/p epinephrine injection, allergic reaction appears to have abated Shortness of breath/ COPD - on 2 L oxygen, -po steroids -duonebs Hypoxia -on 2 L oxygen -X ray shows at electasis -usually uses 2 L at bed time, this time around after 50 of benadryl is quite groggy, -think atletasis and drowsiness is likely contributing more than copd -aggresive pulmonary toilet Hypotension -bp stable on my eval, few low readings in ER -given had allergic reaction will watch closely -hold bp medications DVT -on coumadin, check INR Cardiac diet Full code. Social History - Tobacco smoking status: Current every day smoker - Alcohol alcohol intake frequency: does not drink - Substance use substance use type: marijuana
[2018-12-19] MEDS ORDERED: ACETAMINOPHEN 325 MG TABLET PO PRN (17:20)
[2018-12-19] MEDS ORDERED: ONDANSETRON 4 MG/2 ML VIAL IV PRN (17:20)
[2018-12-19] MEDS ORDERED: NALOXONE HCL 0.4 MG/ML VIAL IV PRN (17:20)
[2018-12-19] MEDS ORDERED: WARFARIN 5 MG TABLET PO ONE (19:00)
[2018-12-19] MEDS: IPRATROPIUM/ALBUTEROL 3 ML AMPUL.NEB NEB SCH ×2 (19:03→23:04)
[2018-12-19] MEDS: 0.9 % SODIUM CHLORIDE 10 ML SYRINGE IV SCH (20:41)
[2018-12-19] MEDS ORDERED: HEPARIN 5,000 UNIT/ML VIAL SQ SCH (21:00)
[2018-12-20] MEDS: IPRATROPIUM/ALBUTEROL 3 ML AMPUL.NEB NEB SCH ×2 (03:30→07:12)
[2018-12-20] MEDS: 0.9 % SODIUM CHLORIDE 10 ML SYRINGE IV SCH (05:47)
[2018-12-20 06:06] LABS: Basophils # (Auto) 0 K/mcL (0.0-0.3); Basophils % (Auto) 0 % (0.0-2.0); Eosinophils # (Auto) 0 K/mcL (0.0-0.7); Eosinophils % (Auto) 0 % (0.0-7.0); Granulocytes % (Auto) 89.5 % (38.0-78.0); Lymphocytes # (Auto) 0.5 K/mcL (1.5-4.8); Lymphocytes % (Auto) 8.7 % (15.5-49.0); Mean Cell Volume 84.4 fL (80.0-100.0); Mean Corpuscular HGB Conc 32.8 g/dL (31.0-36.0); Monocytes # (Auto) 0.1 K/mcL (0.1-0.9); Monocytes % (Auto) 1.8 % (1.0-12.0); Platelet Count 198 K/mcL (140-440); RBC 4.31 M/mcL (4.00-5.20)
[2018-12-20 06:28] LABS: ALT/SGPT 11 U/l (0-40); Albumin 3.3 gm/dL (3.2-5.2); Albumin/Globulin Ratio 1.1 (1.0-2.3); Alkaline Phosphatase 77 U/L (39-117); Bilirubin,Direct < 0.2 mg/dL (0.0-0.3); Blood Urea Nitrogen 36 mg/dl (6-20); Gamma Glutamyl Transpeptidase 46 U/L (5-36); Uric Acid 8.3 mg/dL (2.5-8.0)
[2018-12-20] MEDS ORDERED: predniSONE 20 MG TABLET PO ONE (09:37)
--- NOTE | 2018-12-20 09:41 | Discharge Summary ---
Medical - DS: Prov Patient information: Note initiated : 12/20/18 at 9:38 am Service Date, if different from initiated Date: [] Patient: Shiela Alas 58 y/o F admitted on 12/19/18 for Allergic Reaction. Chief Complaint: [] Date of admission: 12/19/18 17:00 Discharge date: 12/20/18 Primary care physician: Li Ritter Consults: 12/19/18 15:33 Consult to Physician [CONS] Stat Comment: Consulting Provider: Magnus Mancilla Reason For Exam: Physician to Consult Discharging clinician: Magnus Mancilla Medical - DS: Meds - Discharge Medications Prescriptions: predniSONE [Prednisone] 20 mg PO DAILY #10 tab Active and Home Medications: Home Medications Bumetanide 2 mg PO QDAY 03/07/15 [History Confirmed 12/19/18 Last Taken 11/21/17] Pregabalin [Lyrica] 300 mg PO BID 03/07/15 [History Confirmed 12/19/18 Last Taken 10/29/17] Rosuvastatin [Crestor] 10 mg PO HS 03/07/15 [History Confirmed 11/22/18 Last Taken 11/21/17 20:00] buPROPion [Wellbutrin Xl] 300 mg PO DAILY 03/07/15 [History Confirmed 12/19/18 Last Taken 11/21/17 08:00] Losartan Potassium [Cozaar] 100 mg PO DAILY 08/11/17 [History Confirmed 12/19/18 Last Taken 10/29/17] busPIRone [Buspar] 10 mg PO BID 08/11/17 [History Confirmed 12/19/18 Last Taken 10/29/17] clonazePAM [KlonoPIN] 1 mg PO TID 08/11/17 [History Confirmed 12/19/18 Last Taken 10/28/17] Calcitriol [Rocaltrol] 0.25 mcg PO DAILY 07/23/18 [History Confirmed 12/19/18 Last Taken Unknown] Ergocalciferol (Vitamin D2) [Vitamin D2] 50,000 unit PO Q2W 07/23/18 [History Confirmed 12/19/18 Last Taken Unknown] Nebivolol HCl [Bystolic] 10 mg PO DAILY 07/23/18 [History Confirmed 12/19/18 Last Taken Unknown] Omeprazole [Prilosec] 40 mg PO ACB 07/23/18 [History Confirmed 12/19/18 Last Taken Unknown] Spironolactone [Aldactone] 25 mg PO DAILY 07/23/18 [History Confirmed 12/19/18 Last Taken Unknown] Venlafaxine HCl [Venlafaxine HCl ER] 225 mg PO DAILY 07/23/18 [History Confirmed 12/19/18 Last Taken Unknown] amLODIPine [Norvasc] 5 mg PO DAILY 07/23/18 [History Confirmed 12/19/18 Last Taken Unknown] Acetaminophen W/Codeine #3 [Tylenol #3] 1 tab PO BIDP PRN 12/19/18 [History Confirmed 12/19/18 Last Taken Unknown] Aripiprazole [Abilify] 5 mg PO DAILY 12/19/18 [History Confirmed 12/19/18 Last Taken Unknown] Cyclobenzaprine [Flexeril] 10 mg PO BIDP PRN 12/19/18 [History Confirmed 12/19/18 Last Taken Unknown] Leflunomide [Arava] 20 mg PO DAILY 12/19/18 [History Confirmed 12/19/18 Last Taken Unknown] Warfarin [Coumadin] 5 mg PO SUTUWETHSA 12/19/18 [History Confirmed 12/19/18 Last Taken Unknown] Warfarin [Coumadin] 7.5 mg PO MOFR 12/19/18 [History Confirmed 12/19/18 Last Taken Unknown] fentaNYL [Duragesic] 12 mcg TOPICAL Q72H 12/19/18 [History Confirmed 12/19/18 Last Taken 12/18/18 08:00] traZODone HCL [Desyrel] 100 mg PO HS 12/19/18 [History Confirmed 12/19/18 Last Taken Unknown] Medical - DS: Hosp Hospital course: Ms. Alas is a 58 year old F with history of COPD obesity presents to the emergency room after a bee sting. She has a very severe allergic reaction to bee sting does have an EpiPen but since [place] she decided to come to the emergency room instead. She was short of breath hypoxic on presentation. She was also wheezing. She did get EpiPen DuoNeb Benadryl and Solu-Medrol. The patient responded to treatment very well. However in the emergency room patient was noted to remain persistently hypoxic with oxygen saturation around 87% on room air, she also had borderline low blood pressure. She therefore was presented to the hospital for admission. Pt was accompanied by her caretaker. The patient admits to having some cough and shortness of breath and dizziness but otherwise no symptoms. Feels sleepy and groggy. She denies any headache changes in vision any acute fever chills abdominal pain chest pain nausea vomiting diarrhea any new joint pain new skin rashes or any other acute concerns. In the emergency room patient is hemodynamically stable afebrile heart rate 55 blood pressure 103/88 saturating 94% on 2 L of oxygen. Chest x-ray shows bibasilar atelectasis ABG shows pH of 7.35 PCO2 53 p.o. 2 is 45 not sure of arterial or venous Patient does use oxygen at night 2 L. Patient is being admitted to the hospital for further managed 12/20 Pt seen examined, sitting comfortably in chair, no new complaints or concerns, eager to be discharged, off oxygen. Has very mild wheeze on exam, bp stable will discharge with oral prednisone, to continue rest of home medicdations as previously prescribed. Discharge diagnosis: allergic reaction - Time Spent with Patient Total time spent providing and/or coordinating discharge services: Less than 30 minutes Medical - DS: Exam - Constitutional Vitals: Vital Signs Temp Pulse Pulse Resp BP BP BP 12/20/18 08:00 97.9 F 12/20/18 07:51 100/45 12/20/18 07:14 70 18 12/20/18 03:51 97.2 F 24 H 111/57 12/20/18 02:01 66 106/61 12/20/18 00:16 96.8 F L 65 22 104/61 12/19/18 23:05 82 18 12/19/18 20:00 97.6 F 65 24 H 103/83 12/19/18 19:20 69 18 12/19/18 18:00 12/19/18 17:20 98.6 F 62 18 108/83 12/19/18 17:09 98.2 F 57 L 15 94/58 12/19/18 17:00 97.8 F 18 108/83 12/19/18 16:50 58 L 12/19/18 16:46 60 101/79 12/19/18 14:38 15 12/19/18 14:31 57 L 17 94/58 12/19/18 14:20 64 13 112/65 12/19/18 14:01 59 L 101/57 12/19/18 13:46 58 L 99/52 12/19/18 13:31 56 L 95/54 12/19/18 13:21 54 L 12/19/18 13:16 55 L 94/52 12/19/18 13:01 53 L 91/55 12/19/18 12:53 55 L 93/66 12/19/18 12:46 58 L 89/56 12/19/18 12:34 59 L 109/56 12/19/18 12:16 17 94/56 12/19/18 12:01 57 L 18 88/65 12/19/18 12:00 56 L 17 12/19/18 11:46 61 22 91/51 12/19/18 11:36 66 15 99/50 12/19/18 11:31 65 84/45 12/19/18 11:16 26 H 94/48 12/19/18 11:01 53 L 14 92/53 12/19/18 10:57 55 L 19 103/88 12/19/18 10:51 98.2 F 56 L 16 103/88 Pulse Ox 12/20/18 08:00 94 12/20/18 07:51 12/20/18 07:14 91 12/20/18 03:51 91 12/20/18 02:01 95 12/20/18 00:16 90 12/19/18 23:05 12/19/18 20:00 89 L 12/19/18 19:20 12/19/18 18:00 90 12/19/18 17:20 91 12/19/18 17:09 93 12/19/18 17:00 91 12/19/18 16:50 93 12/19/18 16:46 93 12/19/18 14:38 12/19/18 14:31 93 12/19/18 14:20 84 L 12/19/18 14:01 82 L 12/19/18 13:46 82 L 12/19/18 13:31 83 L 12/19/18 13:21 85 L 12/19/18 13:16 86 L 12/19/18 13:01 92 12/19/18 12:53 86 L 12/19/18 12:46 83 L 12/19/18 12:34 83 L 12/19/18 12:16 12/19/18 12:01 96 12/19/18 12:00 92 12/19/18 11:46 82 L 12/19/18 11:36 83 L 12/19/18 11:31 87 L 12/19/18 11:16 12/19/18 11:01 91 12/19/18 10:57 93 12/19/18 10:51 91 Intake and Output 12/19/18 12/20/18 12/20/18 21:59 05:59 13:59 Intake Total 1240 400 400 Output Total 1000 600 Balance 240 -200 400 Intake: IV 1000 Sodium Chloride 0.9% 1,000 ml @ 1000 Wide Open IV BOLUS ONE Rx#: [id number] Oral 240 400 400 Output: Urine Catheter Amount 600 Void Amount 400 600 Other: Meal Dinner Breakfast Percent of Meal Consumed 100% 100% Urine Appearance Clear Sediment Urine Color Straw Weight 209 lb Additional comments: Constitutional; Afebrile, cooperative, alert, not in distress. Respiratory system: Air Entry equal on both sides, No crackles , very mild exp wheeze. CVS- Rate rhythm regular, S1,S2 heard, no gallop, no rub. Abdomen- Soft nontender abdomen, no organomegaly, no tenderness, no guarding or rigidity, [employer]- AOOx3, moving all extremities, no gross focal deficit noted. Medical - DS: Data Labs on day of discharge: Labs from last 24 hours 12/20/18 12/20/18 12/20/18 04:00 04:00 04:00 WBC 5.3 RBC 4.31 Hgb 11.9 L Hct 36.4 POC Hct MCV 84.4 MCH 27.6 MCHC 32.8 RDW 16.0 H Plt Count 198 MPV 10.3 Gran % 89.5 H Lymph % (Auto) 8.7 L [place] % (Auto) 1.8 Eos % (Auto) 0 Baso % (Auto) 0 Gran # 4.8 Lymph # (Auto) 0.5 L [place] # (Auto) 0.1 Eos # (Auto) 0 Baso # (Auto) 0 PT 26.9 H INR 2.5 H D-Dimer VBG Lactic Acid POC Sodium Sodium 139 POC Potassium Potassium 4.5 POC Chloride Chloride 102 Carbon Dioxide 25 POC Total CO2 Anion Gap 12.0 POC BUN BUN 36 H Creatinine 1.3 H POC Creatinine GFR Calculation 46 Glucose 144 H POC Glucose Uric Acid 8.3 H Calcium 8.0 L POC WB Ioniz Calcium Phosphorus 3.9 Magnesium 2.1 Total Bilirubin 0.2 Direct Bilirubin < 0.2 GGT 46 H AST 14 ALT 11 Alkaline Phosphatase 77 Lactate Dehydrogenase 218 Total Protein 6.2 Albumin 3.3 Globulin 2.9 Albumin/Globulin Ratio 1.1 Triglycerides 86 Procalcitonin 12/19/18 12/19/18 12/19/18 13:07 13:06 13:06 WBC RBC Hgb Hct POC Hct MCV MCH MCHC RDW Plt Count MPV Gran % Lymph % (Auto) [place] % (Auto) Eos % (Auto) Baso % (Auto) Gran # Lymph # (Auto) [place] # (Auto) Eos # (Auto) Baso # (Auto) PT 22.2 H INR 2.0 H D-Dimer 0.58 H VBG Lactic Acid POC Sodium Sodium POC Potassium Potassium POC Chloride Chloride Carbon Dioxide POC Total CO2 Anion Gap POC BUN BUN Creatinine POC Creatinine GFR Calculation Glucose POC Glucose Uric Acid Calcium POC WB Ioniz Calcium Phosphorus Magnesium Total Bilirubin Direct Bilirubin GGT AST ALT Alkaline Phosphatase Lactate Dehydrogenase Total Protein Albumin Globulin Albumin/Globulin Ratio Triglycerides Procalcitonin < 0.10 12/19/18 12/19/18 12/19/18 13:06 13:06 13:06 WBC 8.9 RBC 4.34 Hgb 12.0 Hct 36.5 POC Hct 35.0 L MCV 84.1 MCH 27.7 MCHC 32.9 RDW 17.0 H Plt Count 206 MPV 9.9 Gran % 85.2 H Lymph % (Auto) 7.3 L [place] % (Auto) 5.2 Eos % (Auto) 1.8 Baso % (Auto) 0.5 Gran # 7.6 Lymph # (Auto) 0.6 L [place] # (Auto) 0.5 Eos # (Auto) 0.2 Baso # (Auto) 0 PT INR D-Dimer VBG Lactic Acid 0.8 POC Sodium 139 Sodium POC Potassium 4.5 Potassium POC Chloride 101 Chloride Carbon Dioxide POC Total CO2 29 Anion Gap POC BUN 42 H BUN Creatinine POC Creatinine 1.8 H GFR Calculation Glucose POC Glucose 106 H Uric Acid Calcium POC WB Ioniz Calcium 0.91 L Phosphorus Magnesium Total Bilirubin Direct Bilirubin GGT AST ALT Alkaline Phosphatase Lactate Dehydrogenase Total Protein Albumin Globulin Albumin/Globulin Ratio Triglycerides Procalcitonin Medical - DS: A/P - Patient/Caregiver Discharge Instructions Activity: wear oxygen at night Diet: Cardiac Additional Instructions: Take prednisone 40mg (2 x 20mg tabs) with food for another 3 days GO to the ER if worsening shortness of breath. Take all your medications as prescribed by your regular provider, no changes have been made - Follow up Plan Follow up with: Li Ritter MD [Primary Care Provider] - 12/28/18 12:45 pm Disposition: Home, Self-Care Prognosis: Fair Rehab Potential: Fair I certify that the patient requires SNF services: No Overall status at discharge: patient is progressing back to baseline Medical - DS: Qual - VTE Deep Vein Thrombosis/Pulmonary Embolism Present on Admission: No
[2018-12-20] MEDS ORDERED: WARFARIN 5 MG TABLET PO ONE (14:00)
== END 2018-12-20 10:35 | disposition home or self-care (01) ==
LOC: ICU 10:50 → ED 10:50 → ICU 17:00
PROVIDERS: ADMIT Internal Medicine; ATTEND Internal Medicine

== ENCOUNTER 2023-06-08 08:58 | Inpatient (IN) ==
[2023-06-08] MEDS ORDERED: IPRATROPIUM/ALBUTEROL 3 ML AMPUL.NEB NEB ONE ×3 (09:22→11:24)
[2023-06-08] MEDS ORDERED: methylPREDNISolone SOD SUCC 125 MG/2 ML VIAL IV ONE (09:22)
[2023-06-08 09:39] LABS: POC Calcium, Ionized 1.1 (1.16-1.32); POC Creatinine 0.8 (0.6-1.2); POC Potassium 4.5 (3.3-5.1)
[2023-06-08] MEDS ORDERED: cefTRIAXone 2 GM in DEXTROSE 5% IN WATER 50 ML IV ONE (10:37)
[2023-06-08] MEDS ORDERED: AZITHROMYCIN 250 MG TABLET PO ONE (10:37)
[2023-06-08 10:40] LABS: Basophils # (Auto) 0.07 K/mcL (0.00-0.30); Basophils % (Auto) 0.4 % (0.0-2.0); Eosinophils # (Auto) 0.04 K/mcL (0.00-0.70); Eosinophils % (Auto) 0.2 % (0.0-7.0); Hematocrit 50.3 % (34.1-44.9); Hemoglobin 15.6 g/dL (11.2-15.7); Lymphocytes # (Auto) 1.21 K/mcL (1.50-4.80); Lymphocytes % (Auto) 6.4 % (15.5-49.0); Mean Cell Volume 94.2 fL (80.0-100.0); Mean Platelet Volume 11.6 fL (8.8-12.5); Monocytes # (Auto) 1.04 K/mcL (0.10-0.90); Monocytes % (Auto) 5.5 % (1.0-12.0); Neutrophils % (Auto) 86.8 % (38.0-78.0); Platelet Count 151 K/mcL (140-440); RBC 5.34 M/mcL (3.59-5.38); Red Cell Distribution Width 19.7 % (11.5-14.5); WBC 18.9 K/mcL (4.5-11.0)
[2023-06-08] MEDS ORDERED: ONDANSETRON 4 MG/2 ML VIAL IV ONE (10:55)
[2023-06-08 13:59] LABS: Prothrombin Time 13.1 sec (11.9-14.5)
[2023-06-08] MEDS ORDERED: DEXTROSE 50% 50 ML VIAL IV PRN (15:31)
[2023-06-08] MEDS ORDERED: DEXTROSE 31 GM ORAL.SUSP PO PRN (15:31)
[2023-06-08] MEDS ORDERED: SENNOSIDES 1 TABLET PO PRN (15:31)
[2023-06-08] MEDS ORDERED: METOCLOPRAMIDE 10 MG/2 ML VIAL IV PRN (15:31)
[2023-06-08] MEDS ORDERED: 0.9 % SODIUM CHLORIDE 1,000 ML IV SCH (15:31)
[2023-06-08] MEDS ORDERED: POTASSIUM CHLORIDE 40 MEQ in DEXTROSE 5% IN WATER 500 ML IV PRN (15:31)
[2023-06-08] MEDS ORDERED: POLYETHYLENE GLYCOL 3350 17 GM PACKET PO PRN (15:31)
[2023-06-08] MEDS ORDERED: METOPROLOL TARTRATE 5 MG/5 ML VIAL IV PRN (15:31)
[2023-06-08] MEDS ORDERED: ONDANSETRON 4 MG/2 ML VIAL IV PRN (15:31)
[2023-06-08] MEDS ORDERED: POTASSIUM CHLORIDE 20 MEQ TABLET PO PRN ×2 (15:31)
[2023-06-08] MEDS ORDERED: MAGNESIUM SULFATE 2 GM/50 ML BAG IV PRN (15:31)
[2023-06-08 16:00] LABS: Anisocytosis 1+ (None Seen); Band Neutrophils % 2 % (0-10); Lymphocytes % 4 % (15-49); Monocytes % (Manual) 1 % (1-12); Platelet Estimate NORMAL (Normal); Polychromasia FEW (None Seen); RBC Morphology ABNORMAL (Normal); Reactive Lymphocytes 2 % (0-2); Segmented Neutrophils % 91 % (38-78)
[2023-06-08 16:49] LABS: Hemoglobin A1C 7.7 % Hgb (4.0-6.0)
[2023-06-08] MEDS: OSELTAMIVIR PHOSPHATE 75 MG CAPSULE PO SCH (17:02)
[2023-06-08] MEDS: INSULIN LISPRO 1 UNIT/0.01 ML UNIT SQ SCH ×2 (17:03→20:38)
[2023-06-08] MEDS ORDERED: BUDESONIDE 0.5 MG/2 ML AMPUL.NEB ONE (19:22)
[2023-06-08] MEDS: BUDESONIDE 0.5 MG/2 ML AMPUL.NEB NEB SCH (19:28)
[2023-06-08] MEDS: IPRATROPIUM/ALBUTEROL 3 ML AMPUL.NEB NEB SCH (19:28)
[2023-06-08] MEDS: 0.9 % SODIUM CHLORIDE 10 ML SYRINGE IV SCH (20:32)
[2023-06-08] MEDS: PREGABALIN 150 MG CAPSULE PO SCH (22:02)
[2023-06-08] MEDS: clonazePAM 1 MG TABLET PO PRN (22:02)
[2023-06-08] MEDS: traZODone HCL 100 MG TABLET PO SCH (22:03)
[2023-06-08] MEDS: methylPREDNISolone SOD SUCC 125 MG/2 ML VIAL IV SCH (22:03)
[2023-06-08] MEDS: ACETAMINOPHEN 325 MG TABLET PO PRN (22:22)
[2023-06-09] MEDS: OSELTAMIVIR PHOSPHATE 75 MG CAPSULE PO SCH ×3 (00:05→20:27)
[2023-06-09] MEDS: IPRATROPIUM/ALBUTEROL 3 ML AMPUL.NEB NEB SCH ×4 (01:09→19:20)
[2023-06-09] MEDS: 0.9 % SODIUM CHLORIDE 10 ML SYRINGE IV SCH ×3 (05:05→20:29)
[2023-06-09] MEDS: methylPREDNISolone SOD SUCC 125 MG/2 ML VIAL IV SCH ×3 (06:47→21:37)
[2023-06-09 07:03] LABS: ALT/SGPT 10 U/L (<40); AST/SGOT 10 U/L (<32); Albumin 3.1 gm/dL (3.2-5.2); Albumin/Globulin Ratio 1.1 (1.0-2.3); Alkaline Phosphatase 68 U/L (39-117); Bilirubin,Direct < 0.2 mg/dL (0-0.3); Bilirubin,Total 0.4 mg/dL (0.1-1.0); Blood Urea Nitrogen 22 mg/dL (8-23); Calcium 8.6 mg/dL (8.6-10.4); Carbon Dioxide 26 mmol/L (22-30); Chloride 103 mmol/L (96-108); Globulin 2.8 gm/dL (2.2-3.7); Glomerular Filtration Rate 79; Glucose 192 mg/dL (70-105); Lactate Dehydrogenase 308 U/L (135-225); Phosphorous 3.2 mg/dL (2.5-4.5); Triglycerides 95 mg/dL (<150); Uric Acid 6.3 mg/dL (2.5-8.0)
[2023-06-09] MEDS: BUDESONIDE 0.5 MG/2 ML AMPUL.NEB NEB SCH ×2 (07:15→19:19)
[2023-06-09 08:13] LABS: Basophils # (Auto) 0 K/mcL (0.00-0.30); Basophils % (Auto) 0 % (0.0-2.0); Eosinophils # (Auto) 0 K/mcL (0.00-0.70); Eosinophils % (Auto) 0 % (0.0-7.0); Hematocrit 47.2 % (34.1-44.9); Hemoglobin 14.4 g/dL (11.2-15.7); Lymphocytes # (Auto) 0.68 K/mcL (1.50-4.80); Lymphocytes % (Auto) 5.5 % (15.5-49.0); Mean Cell Volume 94.4 fL (80.0-100.0); Mean Corpuscular HGB Conc 30.5 g/dL (31.0-36.0); Mean Platelet Volume 11.5 fL (8.8-12.5); Monocytes % (Auto) 1.6 % (1.0-12.0); Neutrophils % (Auto) 91.9 % (38.0-78.0); Platelet Count 147 K/mcL (140-440); Red Cell Distribution Width 18.6 % (11.5-14.5); WBC 12.3 K/mcL (4.5-11.0)
[2023-06-09] MEDS ORDERED: BENZOCAINE/MENTHOL 1 LOZENGE PO PRN (09:12)
[2023-06-09] MEDS: PREGABALIN 150 MG CAPSULE PO SCH ×2 (11:37→20:27)
[2023-06-09] MEDS: INSULIN LISPRO 1 UNIT/0.01 ML UNIT SQ SCH ×4 (11:38→20:28)
[2023-06-09] MEDS: AZITHROMYCIN 500 MG in DEXTROSE 5% IN WATER 250 ML IV SCH (12:34)
[2023-06-09] MEDS: clonazePAM 1 MG TABLET PO PRN ×2 (13:00→20:27)
[2023-06-09] MEDS: ACETAMINOPHEN 325 MG TABLET PO PRN (18:58)
[2023-06-09] MEDS: traZODone HCL 100 MG TABLET PO SCH (20:27)
[2023-06-09] MEDS: HYDROcodone/APAP 5/325MG TABLET PO PRN (21:37)
[2023-06-10] MEDS: IPRATROPIUM/ALBUTEROL 3 ML AMPUL.NEB NEB SCH ×4 (01:04→18:11)
[2023-06-10] MEDS: 0.9 % SODIUM CHLORIDE 10 ML SYRINGE IV SCH ×3 (05:42→21:46)
[2023-06-10] MEDS: methylPREDNISolone SOD SUCC 125 MG/2 ML VIAL IV SCH (05:42)
[2023-06-10] MEDS: HYDROcodone/APAP 5/325MG TABLET PO PRN ×3 (05:42→21:57)
[2023-06-10] MEDS: BUDESONIDE 0.5 MG/2 ML AMPUL.NEB NEB SCH ×2 (07:05→19:55)
[2023-06-10 07:25] LABS: Blood Urea Nitrogen 29 mg/dL (8-23); Calcium 8.2 mg/dL (8.6-10.4); Carbon Dioxide 21 mmol/L (22-30); Chloride 101 mmol/L (96-108); Glomerular Filtration Rate 79; Glucose 214 mg/dL (70-105)
[2023-06-10] MEDS: INSULIN LISPRO 1 UNIT/0.01 ML UNIT SQ SCH ×4 (08:03→21:45)
[2023-06-10] MEDS: PREGABALIN 150 MG CAPSULE PO SCH ×2 (08:58→21:06)
[2023-06-10] MEDS: clonazePAM 1 MG TABLET PO PRN (08:58)
[2023-06-10] MEDS: OSELTAMIVIR PHOSPHATE 75 MG CAPSULE PO SCH ×2 (08:58→21:06)
[2023-06-10 09:01] LABS: Basophils # (Auto) 0.01 K/mcL (0.00-0.30); Basophils % (Auto) 0.1 % (0.0-2.0); Eosinophils # (Auto) 0 K/mcL (0.00-0.70); Eosinophils % (Auto) 0 % (0.0-7.0); Hematocrit 41.4 % (34.1-44.9); Hemoglobin 13.2 g/dL (11.2-15.7); Lymphocytes # (Auto) 0.66 K/mcL (1.50-4.80); Lymphocytes % (Auto) 4.7 % (15.5-49.0); Mean Cell Volume 90.8 fL (80.0-100.0); Mean Corpuscular HGB Conc 31.9 g/dL (31.0-36.0); Monocytes % (Auto) 3.5 % (1.0-12.0); Neutrophils % (Auto) 91.1 % (38.0-78.0); Platelet Count 150 K/mcL (140-440); RBC 4.56 M/mcL (3.59-5.38); WBC 14.1 K/mcL (4.5-11.0)
[2023-06-10] MEDS ORDERED: NITROGLYCERIN 0.4 MG TAB.SUBL SL PRN (09:54)
[2023-06-10] MEDS: APIXABAN 5 MG TABLET PO SCH ×2 (12:02→21:06)
[2023-06-10] MEDS: AZITHROMYCIN 500 MG in DEXTROSE 5% IN WATER 250 ML IV SCH (12:27)
[2023-06-10] MEDS: DILTIAZEM HCL 60 MG PO SCH ×2 (12:27→21:07)
[2023-06-10] MEDS: IPRATROPIUM/ALBUTEROL 3 ML AMPUL.NEB NEB PRN (19:55)
[2023-06-10] MEDS ORDERED: PREGABALIN 150 MG CAPSULE PO SCH (21:00)
[2023-06-10] MEDS: METOPROLOL TARTRATE 25 MG TABLET PO SCH (21:06)
[2023-06-10] MEDS: traZODone HCL 100 MG TABLET PO SCH (21:06)
[2023-06-10] MEDS: methylPREDNISolone SOD SUCC 40 MG/ML VIAL IV SCH (21:46)
[2023-06-11] MEDS: IPRATROPIUM/ALBUTEROL 3 ML AMPUL.NEB NEB SCH ×2 (01:04→07:05)
[2023-06-11] MEDS: clonazePAM 1 MG TABLET PO PRN ×3 (01:25→12:56)
[2023-06-11] MEDS: HYDROcodone/APAP 5/325MG TABLET PO PRN ×3 (02:34→15:38)
[2023-06-11] MEDS: 0.9 % SODIUM CHLORIDE 10 ML SYRINGE IV SCH ×2 (05:35→15:16)
[2023-06-11 07:01] LABS: Basophils # (Auto) 0.01 K/mcL (0.00-0.30); Basophils % (Auto) 0.1 % (0.0-2.0); Eosinophils # (Auto) 0 K/mcL (0.00-0.70); Eosinophils % (Auto) 0 % (0.0-7.0); Hematocrit 42.3 % (34.1-44.9); Hemoglobin 13.3 g/dL (11.2-15.7); Lymphocytes # (Auto) 0.75 K/mcL (1.50-4.80); Lymphocytes % (Auto) 7.7 % (15.5-49.0); Mean Cell Volume 92.2 fL (80.0-100.0); Mean Corpuscular HGB Conc 31.4 g/dL (31.0-36.0); Mean Platelet Volume 11.5 fL (8.8-12.5); Monocytes # (Auto) 0.24 K/mcL (0.10-0.90); Monocytes % (Auto) 2.5 % (1.0-12.0); Neutrophils % (Auto) 89.1 % (38.0-78.0); Platelet Count 141 K/mcL (140-440); RBC 4.59 M/mcL (3.59-5.38); Red Cell Distribution Width 19.1 % (11.5-14.5); WBC 9.8 K/mcL (4.5-11.0)
[2023-06-11] MEDS: IPRATROPIUM/ALBUTEROL 3 ML AMPUL.NEB NEB PRN (07:05)
[2023-06-11] MEDS: BUDESONIDE 0.5 MG/2 ML AMPUL.NEB NEB SCH (07:05)
[2023-06-11] MEDS: DILTIAZEM HCL 60 MG PO SCH (08:41)
[2023-06-11] MEDS: PREGABALIN 150 MG CAPSULE PO SCH (08:42)
[2023-06-11] MEDS: METOPROLOL TARTRATE 25 MG TABLET PO SCH (08:43)
[2023-06-11] MEDS: INSULIN LISPRO 1 UNIT/0.01 ML UNIT SQ SCH ×2 (08:43→13:19)
[2023-06-11] MEDS: APIXABAN 5 MG TABLET PO SCH (08:43)
[2023-06-11] MEDS: methylPREDNISolone SOD SUCC 40 MG/ML VIAL IV SCH (08:51)
[2023-06-11] MEDS ORDERED: PNEUMOCCAL 13 VACC (ADULT) 0.5 ML SYRINGE IM ONE (14:08)
[2023-06-11] MEDS ORDERED: FLUZONE QUAD QS2023-24/PF 60 MCG/0.5 ML SYRINGE IM ONE (14:45)
[2023-06-11] MEDS ORDERED: PNEUMOCOCCAL 23-VAL P-SAC VAC 0.5 ML SYRINGE IM ONE (14:45)
== END 2023-06-11 15:45 | disposition home or self-care (01) | DRG 189 ==
LOC: ED 08:58 → MEDSUR 13:16
PROVIDERS: ADMIT Internal Medicine; ATTEND Internal Medicine